=== PATIENT | male | born 1935 | race Caucasian/White ===

== ENCOUNTER 2018-10-23 18:22 | Inpatient (IN) | payer MEDICARE | END 2018-10-26 12:30 | LOC: ER 18:22 → ED HOLD 20:36 → ORTHO 4S 22:37 | DX: I12.9 Hypertensive chronic kidney disease with stage 1 through stage 4 chronic kidney disease, or unspecified chronic kidney disease (principal); G45.9 Transient cerebral ischemic attack, unspecified; N39.0 Urinary tract infection, site not specified; N17.9 Acute kidney failure, unspecified; F03.90 Unspecified dementia, unspecified severity, without behavioral disturbance, psychotic disturbance, mood disturbance, and anxiety; I65.02 Occlusion and stenosis of left vertebral artery; N18.9 Chronic kidney disease, unspecified ==

== ENCOUNTER 2018-11-17 16:48 | Inpatient (IN) | payer MEDICARE ==
[~2018-11-17] VITALS: Ht 172.7 cm; Wt 61.2 kg
[~2018-11-17 16:48] MED LIST: AMLO2.5T2 PO; ASPI-1265 PO; ATOR20TA PO; GABA-532 PO; HYDR28CR14 TOP; ISOS30TA9 PO; KEN0.1O TP; LISI-600 PO; METO100T7 PO; MYCOL15CR TOP
[2018-11-17 17:45] LABS: BASOPHILS % (AUTO) 0.6 % (0-1); EOSINOPHILS # (AUTO) 0.4 X10'3 (0-0.9); EOSINOPHILS % (AUTO) 6.7 % (0-6); HEMATOCRIT 38.3 % (42.0-52.0); HEMOGLOBIN 12.3 g/dl (14.0-17.9); LYMPHOCYTES % (AUTO) 15.2 % (21-51); MEAN CORPUSCULAR HEMOGLOBIN 27.9 PG (27.0-31.0); MEAN CORPUSCULAR VOLUME 87.3 FL (78-98); MEAN PLATELET VOLUME 8.2 FL (7.4-10.4); MONOCYTES # (AUTO) 0.5 X10'3 (0-0.9); MONOCYTES % (AUTO) 7.9 % (2-12); NEUTROPHILS # (AUTO) 4.6 X10'3 (1.8-7.7); NEUTROPHILS % (AUTO) 69.6 % (42-75); PLATELET COUNT 228 X10'3 (140-440); RED BLOOD COUNT 4.39 X10'6 (4.70-6.10); RED CELL DISTRIBUTION WIDTH 18.6 % (11.5-14.5); WHITE BLOOD COUNT 6.6 X10'3 (4.5-11.0)
[2018-11-17 17:49] LABS: CLARITY,URINE CLOUDY (Clear); COLOR,URINE YELLOW (Yellow); GLUCOSE, URINE NEGATIVE (Neg); KETONES,URINE NEGATIVE (Neg); LEUKOCYTE ESTERASE ,URINE LARGE (Neg); NITRITES, URINE POSITIVE (Neg); OCCULT BLOOD,URINE MODERATE (Neg); PH,URINE 5.5 (4.8-8.0); PROTEIN,URINE 100 mg/dl (Neg); UROBILINOGEN,URINE 0.2 E.U/dL (0.2-1.0)
[2018-11-17 17:53] LABS: UA COLLECTION TYPE CLN CATCH MIDSTREAM
[2018-11-17 17:54] LABS: BACTERIA,URINE 3+ /HPF (Neg); MUCUS STRANDS NONE SEEN /LPF (Neg); SQUAMOUS EPITHELIAL CELL,UR NONE SEEN /LPF (FEW); TRANSITIONAL EPI CELLS,URINE FEW /HPF; WBC,URINE TNTC /HPF (0-4)
[2018-11-17 18:01] LABS: ALANINE AMINOTRANSFERASE 30 U/L (12-78); ALBUMIN 3.4 G/DL (3.4-5.0); ALKALINE PHOSPHATASE 157 IU/L (46-116); ANION GAP 9 (8-16); ASPARTATE AMINO TRANSFERASE 17 U/L (10-37); BILIRUBIN,TOTAL 0.4 MG/DL (0.1-1.0); BLOOD UREA NITROGEN 41 MG/DL (7-18); BUN/CREATININE RATIO 19.9 (5.4-32.0); CALCIUM 8.8 MG/DL (8.5-10.1); CHLORIDE 111 MMOL/L (99-107); CREATININE 2.06 MG/DL (0.60-1.10); GLUCOSE 140 MG/DL (70-104); SODIUM 141 MMOL/L (135-145); TOTAL CARBON DIOXIDE 20.8 MMOL/L (24-32); TOTAL PROTEIN 6.7 G/DL (6.4-8.2); eGFR 31 ML/MIN
[2018-11-17 18:04] LABS: POTASSIUM 6.3 MMOL/L (3.5-5.1)
[2018-11-17] MEDS ORDERED: insulin regular, human 10 units/0.1 ml syringe IV ONE (18:10)
[2018-11-17] MEDS ORDERED: calcium chloride 100 MG/1 ML inj IV ONE (18:10)
[2018-11-17] MEDS ORDERED: dextrose 50%-water 50ml dispensing syringe IV ONE (18:10)
--- NOTE | 2018-11-17 18:26 | NUR ---
DR. MCCANN CALLED AND SAID NOC HOSPITALIST WOULD HAVE TO TAKE OVER ON THIS CALL
[2018-11-17] MEDS ORDERED: GABA-532 PO (18:45)
[2018-11-17] MEDS ORDERED: ISOS30TA9 PO (18:48)
[2018-11-17] MEDS ORDERED: AMLO2.5T2 PO ×2 (18:51→18:53)
[2018-11-17] MEDS ORDERED: KEN0.1O TP (18:56)
[2018-11-17] MEDS ORDERED: METO-395 PO (18:56)
[2018-11-17] MEDS ORDERED: DIPH50CA3 PO (19:01)
[2018-11-17] MEDS ORDERED: LORA10CA PO (19:01)
[2018-11-17] MEDS ORDERED: MELA3TAB PO (19:01)
[2018-11-17] MEDS ORDERED: SYN0.088T PO (19:01)
[2018-11-17] MEDS ORDERED: acetaminophen 325mg tablet PO PRN (19:05)
[2018-11-17] MEDS ORDERED: magnesium hydroxide 30ml (MOM) UD suspension PO PRN (19:05)
[2018-11-17] MEDS ORDERED: ondansetron/PF 4mg/2ml inj IV PRN (19:05)
[2018-11-17] MEDS ORDERED: morphine 2 MG/ML inj. syringe IV PRN ×2 (19:05)
[2018-11-17] MEDS ORDERED: mag hydrox/Alum hydrox/simeth 30ml oral suspension PO PRN (19:05)
[2018-11-17] MEDS: normal saline 1000ml 1,000 ML IV SCH (19:32)
[2018-11-17] MEDS: meropenem inj 1 GM in normal saline 100ml IV soln 100 ML IV SCH (19:32)
[2018-11-17] MEDS: heparin, porcine 5000 units/ml vial SQ SCH (20:25)
[2018-11-17 21:30] VITALS: BP 159/81
[2018-11-18] VITALS: BP 121/59
[2018-11-18] MEDS: meropenem inj 1 GM in normal saline 100ml IV soln 100 ML IV SCH ×3 (03:09→21:08)
[2018-11-18 04:08] LABS: BASOPHILS # (AUTO) 0.1 X10'3 (0-0.2); BASOPHILS % (AUTO) 0.8 % (0-1); EOSINOPHILS # (AUTO) 0.5 X10'3 (0-0.9); EOSINOPHILS % (AUTO) 7.9 % (0-6); HEMATOCRIT 37.9 % (42.0-52.0); HEMOGLOBIN 12.2 g/dl (14.0-17.9); LYMPHOCYTES # (AUTO) 1.2 X10'3 (1.1-4.8); LYMPHOCYTES % (AUTO) 18.3 % (21-51); MEAN CORPUSCULAR HEMOGLOBIN 27.7 PG (27.0-31.0); MEAN CORPUSCULAR HGB CONC 32.3 g/dL (33.0-36.5); MEAN CORPUSCULAR VOLUME 85.9 FL (78-98); MEAN PLATELET VOLUME 8.6 FL (7.4-10.4); MONOCYTES # (AUTO) 0.6 X10'3 (0-0.9); NEUTROPHILS # (AUTO) 4.2 X10'3 (1.8-7.7); PLATELET COUNT 220 X10'3 (140-440); RED BLOOD COUNT 4.41 X10'6 (4.70-6.10); WHITE BLOOD COUNT 6.6 X10'3 (4.5-11.0)
[2018-11-18 04:19] LABS: ALBUMIN 3.1 G/DL (3.4-5.0); ANION GAP 7 (8-16); BLOOD UREA NITROGEN 37 MG/DL (7-18); BUN/CREATININE RATIO 20.7 (5.4-32.0); CALCIUM 9.2 MG/DL (8.5-10.1); CHLORIDE 113 MMOL/L (99-107); CREATININE 1.79 MG/DL (0.60-1.10); GLUCOSE 92 MG/DL (70-104); POTASSIUM 5.9 MMOL/L (3.5-5.1); SODIUM 141 MMOL/L (135-145); TOTAL CARBON DIOXIDE 20.9 MMOL/L (24-32); eGFR 36 ML/MIN
[2018-11-18] MEDS: normal saline 1000ml 1,000 ML IV SCH (05:11)
[2018-11-18 05:13] LABS: ANISOCYTOSIS 2+; BURR CELLS FEW; ELLIPTOCYTES FEW; PLATELET ESTIMATE NORMAL
--- NOTE | 2018-11-18 06:21 | NUR ---
Problems reprioritized. Patient report given, questions answered & plan of care reviewed with Sweta MORAN. Addendum: 11/18/18 at 0621 by Kristen Amezcua RN Amended: Links added.
[2018-11-18 07:00] VITALS: BP 156/83
[2018-11-18] MEDS: aspirin 81mg tab.chew PO SCH (07:28)
[2018-11-18] MEDS: loratadine 10mg tablet PO SCH (07:28)
[2018-11-18] MEDS: triamcinolone acet 0.1% cream 15gm TP SCH ×2 (07:29→20:00)
[2018-11-18] MEDS: heparin, porcine 5000 units/ml vial SQ SCH ×2 (07:29→20:00)
[2018-11-18] MEDS: levoTHYROXINE 25mcg tablet PO SCH (07:29)
[2018-11-18] MEDS: isosorbide dinitrate 30mg tablet PO SCH (07:43)
[2018-11-18] MEDS: metoprolol succinate 25mg (24-HOUR) SR. Tablet PO SCH (07:43)
[2018-11-18] MEDS: amLODIPine 5mg tablet PO SCH (07:44)
[2018-11-18 11:00] VITALS: BP_SYST 116; BP_SYST 118; BP_DIAS 69; BP_DIAS 70
[2018-11-18] MEDS ORDERED: insulin Lispro (HumaLOG) vial - multi-dose SQ SCH (17:25)
[2018-11-18] MEDS ORDERED: dextrose ORAL solution 15 GM/59 ML bottle PO PRN ×2 (17:25)
[2018-11-18] MEDS ORDERED: glucagon, human recombinant 1mg kit SUBCUT PRN (17:25)
[2018-11-18] MEDS ORDERED: dextrose 50%-water 50ml dispensing syringe IV PRN ×2 (17:25)
[2018-11-18] MEDS ORDERED: MESSAGE TO PHARMACY PO ONE (17:25)
--- NOTE | 2018-11-18 18:49 | NUR ---
Patient in room THONG 353. I have received report from HEIKE MORAN and had the opportunity to ask questions and assume patient care. Addendum: 11/18/18 at 1849 by Ana Lilia Andrew RN Amended: Links added.
--- NOTE | 2018-11-18 19:05 | NUR ---
PT. IN BED, COMFORTABLE, SITTING UP IN BED, RECENT BED CHANGE, PT IS DRY, IV SL, BED ALARM IS ON AND WORKING. GAVE REPORT TO RASHAAD MORAN.
[2018-11-18 20:00] VITALS: BP 138/78
[2018-11-18] MEDS: insulin glargine (Lantus) pen - multi-dose SQ SCH (21:00)
[2018-11-18] MEDS: diphenhydrAMINE 25mg capsule PO SCH (21:09)
[2018-11-18] MEDS: atorvastatin 20mg tablet PO SCH (21:09)
[2018-11-18] MEDS: Melatonin 3mg tablet PO SCH (21:10)
--- NOTE | 2018-11-18 21:22 | NUR ---
computer not always scanning had to admin some meds due to this. not working well.
--- NOTE | 2018-11-18 23:50 | NUR ---
pt bladder scan after c/o burning with pee. pt peed 50cc and scanned for 465 left in the bladder hx of urinary retention.
[2018-11-19] VITALS: BP 147/80
--- NOTE | 2018-11-19 | NUR ---
call out to hospitalist regarding pt urinary retention.
--- NOTE | 2018-11-19 01:00 | NUR ---
recieved return call an aware pt hx urinary retention uti c/o burning on abx and pt confused with dementia. orders to continue to monitor recieved.
--- NOTE | 2018-11-19 01:20 | NUR ---
pt peed 250cc urine and bladder scanned for 712cc in the bladder pt continues to c/o discomfort. stated if over 550cc insert a luong on pt.
--- NOTE | 2018-11-19 01:55 | NUR ---
luong inserted via sterile procedure. had bladder scan of 712cc in there after luong inserted got 500cc out. cl yellow urine. pt stated very painful but ok with the luong now.
[2018-11-19] MEDS: meropenem inj 1 GM in normal saline 100ml IV soln 100 ML IV SCH ×2 (03:46→12:28)
--- NOTE | 2018-11-19 03:57 | NUR ---
pt awoke for lab drawn
[2018-11-19 04:33] LABS: BASOPHILS # (AUTO) 0.1 X10'3 (0-0.2); BASOPHILS % (AUTO) 0.7 % (0-1); EOSINOPHILS # (AUTO) 0.5 X10'3 (0-0.9); EOSINOPHILS % (AUTO) 7.4 % (0-6); HEMATOCRIT 39.3 % (42.0-52.0); HEMOGLOBIN 12.6 g/dl (14.0-17.9); LYMPHOCYTES % (AUTO) 13.9 % (21-51); MEAN CORPUSCULAR HEMOGLOBIN 27.8 PG (27.0-31.0); MEAN CORPUSCULAR HGB CONC 32.1 g/dL (33.0-36.5); MEAN CORPUSCULAR VOLUME 86.4 FL (78-98); MEAN PLATELET VOLUME 8.5 FL (7.4-10.4); MONOCYTES # (AUTO) 0.5 X10'3 (0-0.9); MONOCYTES % (AUTO) 6.7 % (2-12); NEUTROPHILS % (AUTO) 71.3 % (42-75); PLATELET COUNT 212 X10'3 (140-440); RED BLOOD COUNT 4.55 X10'6 (4.70-6.10); RED CELL DISTRIBUTION WIDTH 18.4 % (11.5-14.5); WHITE BLOOD COUNT 7.1 X10'3 (4.5-11.0)
[2018-11-19 04:53] LABS: ALBUMIN 3.2 G/DL (3.4-5.0); ANION GAP 8 (8-16); BLOOD UREA NITROGEN 27 MG/DL (7-18); BUN/CREATININE RATIO 16.7 (5.4-32.0); CALCIUM 9.2 MG/DL (8.5-10.1); CHLORIDE 111 MMOL/L (99-107); CREATININE 1.62 MG/DL (0.60-1.10); GLUCOSE 89 MG/DL (70-104); POTASSIUM 5.6 MMOL/L (3.5-5.1); SODIUM 140 MMOL/L (135-145); TOTAL CARBON DIOXIDE 20.7 MMOL/L (24-32); eGFR 41 ML/MIN
--- NOTE | 2018-11-19 05:07 | NUR ---
resting without changes.
--- NOTE | 2018-11-19 06:19 | NUR ---
Problems reprioritized. Patient report given, questions answered & plan of care reviewed with HEIKE MORAN. Addendum: 11/19/18 at 0620 by Ana Lilia Andrew RN Amended: Links added.
[2018-11-19 07:00] VITALS: BP 158/70
[2018-11-19] MEDS: metoprolol succinate 25mg (24-HOUR) SR. Tablet PO SCH (08:26)
[2018-11-19] MEDS: loratadine 10mg tablet PO SCH (08:26)
[2018-11-19] MEDS: aspirin 81mg tab.chew PO SCH (08:26)
[2018-11-19] MEDS: isosorbide dinitrate 30mg tablet PO SCH (08:26)
[2018-11-19] MEDS: levoTHYROXINE 25mcg tablet PO SCH (08:27)
[2018-11-19] MEDS: amLODIPine 5mg tablet PO SCH (08:27)
[2018-11-19] MEDS: heparin, porcine 5000 units/ml vial SQ SCH ×2 (08:28→19:58)
[2018-11-19] MEDS: triamcinolone acet 0.1% cream 15gm TP SCH ×2 (08:28→19:58)
[2018-11-19] MEDS: HYDROcodone/acetaminophen 5mg/325mg tablet PO PRN ×2 (08:28→15:31)
[2018-11-19 12:00] VITALS: BP 122/72
--- NOTE | 2018-11-19 16:19 | NUR ---
PAGER ID: [phone] MESSAGE: can you please call me about pt. in [id number]ail[address] Sol [phone]
--- NOTE | 2018-11-19 17:32 | NUR ---
Pt. repositioned, moved into W/C to be in upright position for dinner. Last pain medication given at 1530, no c/o pain at this time although some verbal groaning during repositioning. Fall precautions in place.
--- NOTE | 2018-11-19 18:11 | NUR ---
Gave report to Ana Lilia MORAN.
--- NOTE | 2018-11-19 18:30 | NUR ---
Patient in room THONG 353. I have received report from HEIKE MORAN and had the opportunity to ask questions and assume patient care.
--- NOTE | 2018-11-19 19:00 | NUR ---
pt up in chair for dinner then assisted back to bed with 2 people. tolerated well.
[2018-11-19 19:22] VITALS: BP 147/76
[2018-11-19] MEDS: diphenhydrAMINE 25mg capsule PO SCH (19:58)
[2018-11-19] MEDS: lactobacillus rhamnosus 10,000 MMU CELLS/CAPSULE PO SCH (19:58)
[2018-11-19] MEDS: atorvastatin 20mg tablet PO SCH (19:59)
[2018-11-19] MEDS: Melatonin 3mg tablet PO SCH (19:59)
[2018-11-19] MEDS: tamsulosin 0.4mg capsule PO SCH (19:59)
[2018-11-19] MEDS: insulin glargine (Lantus) pen - multi-dose SQ SCH (20:05)
--- NOTE | 2018-11-19 20:06 | NUR ---
computer not scanning meds. administered them in isolation room.
--- NOTE | 2018-11-19 22:00 | NUR ---
pt resting appears comfortable.
--- NOTE | 2018-11-19 23:15 | NUR ---
pt resting eyes closed without changes.
[2018-11-20] VITALS: BP 125/74
[2018-11-20] MEDS: meropenem inj 1 GM in normal saline 100ml IV soln 100 ML IV SCH ×2 (00:19→12:55)
--- NOTE | 2018-11-20 00:45 | NUR ---
resting eyes closed no changes iv abx infusing
--- NOTE | 2018-11-20 02:45 | NUR ---
RESTING WITHOUT CHANGES.
--- NOTE | 2018-11-20 04:34 | NUR ---
resting without changes.
--- NOTE | 2018-11-20 04:48 | NUR ---
labs drawn with Rn and dental laboratory assistant tolerated well.
[2018-11-20 05:27] LABS: BASOPHILS % (AUTO) 0.7 % (0-1); EOSINOPHILS # (AUTO) 0.4 X10'3 (0-0.9); EOSINOPHILS % (AUTO) 7.2 % (0-6); HEMATOCRIT 38.2 % (42.0-52.0); HEMOGLOBIN 12.5 g/dl (14.0-17.9); LYMPHOCYTES # (AUTO) 0.8 X10'3 (1.1-4.8); LYMPHOCYTES % (AUTO) 14.1 % (21-51); MEAN CORPUSCULAR HEMOGLOBIN 28.1 PG (27.0-31.0); MEAN CORPUSCULAR HGB CONC 32.8 g/dL (33.0-36.5); MEAN CORPUSCULAR VOLUME 85.7 FL (78-98); MEAN PLATELET VOLUME 8.4 FL (7.4-10.4); MONOCYTES # (AUTO) 0.5 X10'3 (0-0.9); MONOCYTES % (AUTO) 8.9 % (2-12); NEUTROPHILS % (AUTO) 69.1 % (42-75); PLATELET COUNT 202 X10'3 (140-440); RED BLOOD COUNT 4.46 X10'6 (4.70-6.10); RED CELL DISTRIBUTION WIDTH 18.2 % (11.5-14.5); WHITE BLOOD COUNT 5.8 X10'3 (4.5-11.0)
--- NOTE | 2018-11-20 05:49 | NUR ---
resting no changes
[2018-11-20 05:56] LABS: ALBUMIN 3.1 G/DL (3.4-5.0); ANION GAP 13 (8-16); BLOOD UREA NITROGEN 24 MG/DL (7-18); BUN/CREATININE RATIO 14.7 (5.4-32.0); CHLORIDE 108 MMOL/L (99-107); CREATININE 1.63 MG/DL (0.60-1.10); GLUCOSE 77 MG/DL (70-104); POTASSIUM 5.4 MMOL/L (3.5-5.1); SODIUM 139 MMOL/L (135-145); TOTAL CARBON DIOXIDE 17.6 MMOL/L (24-32); eGFR 40 ML/MIN
--- NOTE | 2018-11-20 06:28 | NUR ---
Problems reprioritized. Patient report given, questions answered & plan of care reviewed with VIVIAN MORAN. Addendum: 11/20/18 at 0629 by Ana Lilia Andrew RN Amended: Links added.
--- NOTE | 2018-11-20 06:30 | NUR ---
Patient in room THONG 353. I have received report from Ana Lilia MORAN and had the opportunity to ask questions and assume patient care.
[2018-11-20 08:00] VITALS: BP 173/87
[2018-11-20] MEDS: aspirin 81mg tab.chew PO SCH (10:45)
[2018-11-20] MEDS: metoprolol succinate 25mg (24-HOUR) SR. Tablet PO SCH (10:45)
[2018-11-20] MEDS: loratadine 10mg tablet PO SCH (10:46)
[2018-11-20] MEDS: lactobacillus rhamnosus 10,000 MMU CELLS/CAPSULE PO SCH ×2 (10:46→21:01)
[2018-11-20] MEDS: levoTHYROXINE 25mcg tablet PO SCH (10:47)
[2018-11-20] MEDS: amLODIPine 5mg tablet PO SCH (10:47)
[2018-11-20] MEDS: isosorbide dinitrate 30mg tablet PO SCH (10:47)
[2018-11-20] MEDS: heparin, porcine 5000 units/ml vial SQ SCH ×2 (10:49→20:00)
[2018-11-20] MEDS: triamcinolone acet 0.1% cream 15gm TP SCH ×2 (10:50→20:00)
[2018-11-20 11:00] VITALS: BP 131/82
--- NOTE | 2018-11-20 18:29 | NUR ---
Patient in room THONG 353. I have received report from Thanh Trujillo and had the opportunity to ask questions and assume patient care. Addendum: 11/20/18 at 1829 by Ana Lilia Andrew RN Amended: Links added.
--- NOTE | 2018-11-20 18:30 | NUR ---
Problems reprioritized. Patient report given, questions answered & plan of care reviewed with Ana Lilia MORAN.
--- NOTE | 2018-11-20 18:57 | NUR ---
Patient in room [facility]ONG 353. I have received report from VIVIAN MORAN and had the opportunity to ask questions and assume patient care. Addendum: 11/20/18 at 1857 by Ana Lilia Andrew RN Amended: Links added.
[2018-11-20 19:54] VITALS: BP 139/64
[2018-11-20] MEDS: tamsulosin 0.4mg capsule PO SCH (20:59)
[2018-11-20] MEDS: atorvastatin 20mg tablet PO SCH (20:59)
[2018-11-20] MEDS: Melatonin 3mg tablet PO SCH (20:59)
[2018-11-20] MEDS: insulin glargine (Lantus) pen - multi-dose SQ SCH (21:00)
[2018-11-20] MEDS: diphenhydrAMINE 25mg capsule PO SCH (21:01)
--- NOTE | 2018-11-20 23:40 | NUR ---
pt restless ound sitting on edge of bed and ARCH CUSHION SKIVING MACHINE OPERATOR got him up in recling chair and gave him decaf coffe. pt no ok with this.
[2018-11-21] VITALS: BP 121/70
[2018-11-21] MEDS: meropenem inj 1 GM in normal saline 100ml IV soln 100 ML IV SCH ×2 (00:10→13:05)
--- NOTE | 2018-11-21 00:16 | NUR ---
up in recling chair watching tv no s&s of distress. denies c/o pain at this time.
--- NOTE | 2018-11-21 02:05 | NUR ---
pt now back in bed and resting no s&s of distress at this time. tolerated well.
--- NOTE | 2018-11-21 04:05 | NUR ---
pt resting eyes closed without changes.
[2018-11-21 04:49] LABS: BASOPHILS % (AUTO) 0.8 % (0-1); EOSINOPHILS # (AUTO) 0.3 X10'3 (0-0.9); EOSINOPHILS % (AUTO) 6.3 % (0-6); HEMATOCRIT 38.5 % (42.0-52.0); HEMOGLOBIN 12.6 g/dl (14.0-17.9); LYMPHOCYTES # (AUTO) 0.9 X10'3 (1.1-4.8); LYMPHOCYTES % (AUTO) 18.6 % (21-51); MEAN CORPUSCULAR HEMOGLOBIN 27.9 PG (27.0-31.0); MEAN CORPUSCULAR HGB CONC 32.8 g/dL (33.0-36.5); MEAN CORPUSCULAR VOLUME 85.3 FL (78-98); MEAN PLATELET VOLUME 8.1 FL (7.4-10.4); MONOCYTES # (AUTO) 0.5 X10'3 (0-0.9); MONOCYTES % (AUTO) 10.7 % (2-12); NEUTROPHILS # (AUTO) 3.2 X10'3 (1.8-7.7); NEUTROPHILS % (AUTO) 63.6 % (42-75); PLATELET COUNT 198 X10'3 (140-440); RED BLOOD COUNT 4.52 X10'6 (4.70-6.10); RED CELL DISTRIBUTION WIDTH 18.3 % (11.5-14.5); WHITE BLOOD COUNT 5.1 X10'3 (4.5-11.0)
[2018-11-21 04:58] LABS: ALBUMIN 3.1 G/DL (3.4-5.0); ANION GAP 10 (8-16); BLOOD UREA NITROGEN 23 MG/DL (7-18); BUN/CREATININE RATIO 13.2 (5.4-32.0); CALCIUM 8.7 MG/DL (8.5-10.1); CHLORIDE 109 MMOL/L (99-107); CREATININE 1.74 MG/DL (0.60-1.10); GLUCOSE 80 MG/DL (70-104); POTASSIUM 5.2 MMOL/L (3.5-5.1); SODIUM 139 MMOL/L (135-145); TOTAL CARBON DIOXIDE 19.9 MMOL/L (24-32); eGFR 37 ML/MIN
[2018-11-21] MEDS: HYDROcodone/acetaminophen 5mg/325mg tablet PO PRN ×2 (05:12→22:34)
--- NOTE | 2018-11-21 05:15 | NUR ---
pt medicated for pain with norco po. repositioned in bed.
--- NOTE | 2018-11-21 06:10 | NUR ---
Problems reprioritized. Patient report given, questions answered & plan of care reviewed with VIVIAN MORAN. Addendum: 11/21/18 at 0612 by Ana Lilia Andrew RN Amended: Links added.
--- NOTE | 2018-11-21 06:30 | NUR ---
Patient in room THONG 353. I have received report from Ana Lilia MORAN and had the opportunity to ask questions and assume patient care.
[2018-11-21 08:13] VITALS: BP 149/70
[2018-11-21] MEDS: levoTHYROXINE 25mcg tablet PO SCH (08:49)
[2018-11-21] MEDS: aspirin 81mg tab.chew PO SCH (08:49)
[2018-11-21] MEDS: metoprolol succinate 25mg (24-HOUR) SR. Tablet PO SCH (08:49)
[2018-11-21] MEDS: loratadine 10mg tablet PO SCH (08:49)
[2018-11-21] MEDS: lactobacillus rhamnosus 10,000 MMU CELLS/CAPSULE PO SCH ×2 (08:49→20:42)
[2018-11-21] MEDS: amLODIPine 5mg tablet PO SCH (08:50)
[2018-11-21] MEDS: isosorbide dinitrate 30mg tablet PO SCH (08:50)
[2018-11-21] MEDS: triamcinolone acet 0.1% cream 15gm TP SCH ×2 (08:52→20:46)
[2018-11-21] MEDS: heparin, porcine 5000 units/ml vial SQ SCH ×2 (08:53→20:40)
[2018-11-21 11:00] VITALS: BP 128/73
--- NOTE | 2018-11-21 11:18 | NUR ---
Initial: Pt admit with UTI with luong cath placed and receiving Flomax per MD notes. Pt currently on a CHO controlled diet with most documented intake 100% meeting nutrient needs. LBM 11/19. Pt with MoM PRN not yet given however pt denies GI symptoms at this time per physical assessment. No nutrition diagnosis at this time. Will continue to follow. Recommendations: 1) Continue CHO controlled diet 2) Monitor need for additional bowel care 3) Wt per rx Addendum: 11/21/18 at [address] Amended: Links added.
[2018-11-21 18:00] VITALS: BP 155/79
--- NOTE | 2018-11-21 18:30 | NUR ---
Problems reprioritized. Patient report given, questions answered & plan of care reviewed with Hieu MORAN.
--- NOTE | 2018-11-21 18:31 | NUR ---
Patient in room [facility] 353. I have received report from LUISA Villalobos and had the opportunity to ask questions and assume patient care. Addendum: 11/21/18 at 2252 by Hieu Dyer RN Patient in room [facility]ONG 353. I have received report from LUISA Law and had the opportunity to ask questions and assume patient care.
[2018-11-21] MEDS: cefepime 1GM/NS ADD-VANTAGE 100 ML IV SCH (20:40)
[2018-11-21] MEDS: atorvastatin 20mg tablet PO SCH (20:42)
[2018-11-21] MEDS: linezolid 600mg tablet PO SCH (20:42)
[2018-11-21] MEDS: diphenhydrAMINE 25mg capsule PO SCH (20:42)
[2018-11-21] MEDS: Melatonin 3mg tablet PO SCH (20:42)
[2018-11-21] MEDS: tamsulosin 0.4mg capsule PO SCH (20:42)
[2018-11-21] MEDS: insulin glargine (Lantus) pen - multi-dose SQ SCH (21:00)
[2018-11-21] MEDS ORDERED: magnesium Cl slow-release 64mg tablet PO PRN (21:30)
[2018-11-21] MEDS ORDERED: potassium Cl 40MEQ/NS 500ml 500 ML IV PRN ×2 (21:30)
[2018-11-21] MEDS ORDERED: sodium bicarbonate (8.4%) inj. 100 MEQ in dextrose 5%-water 1,000 ML IV SCH (21:30)
[2018-11-21] MEDS ORDERED: potassium Cl 20 mEq SR tablet PO PRN ×2 (21:30)
[2018-11-21] MEDS ORDERED: magnesium 4gm in 100ml NS 100 ML IV PRN (21:30)
[2018-11-22] VITALS: BP 155/69
[2018-11-22 05:29] LABS: BASOPHILS % (AUTO) 0.4 % (0-1); EOSINOPHILS # (AUTO) 0.4 X10'3 (0-0.9); EOSINOPHILS % (AUTO) 7.3 % (0-6); HEMATOCRIT 37.2 % (42.0-52.0); HEMOGLOBIN 12.3 g/dl (14.0-17.9); MEAN CORPUSCULAR HEMOGLOBIN 28.2 PG (27.0-31.0); MEAN CORPUSCULAR HGB CONC 33.1 g/dL (33.0-36.5); MONOCYTES # (AUTO) 0.6 X10'3 (0-0.9); MONOCYTES % (AUTO) 11.8 % (2-12); NEUTROPHILS # (AUTO) 3.1 X10'3 (1.8-7.7); NEUTROPHILS % (AUTO) 61.5 % (42-75); PLATELET COUNT 190 X10'3 (140-440); RED BLOOD COUNT 4.38 X10'6 (4.70-6.10); RED CELL DISTRIBUTION WIDTH 17.9 % (11.5-14.5); WHITE BLOOD COUNT 5.1 X10'3 (4.5-11.0)
[2018-11-22 05:44] LABS: ALBUMIN 2.9 G/DL (3.4-5.0); ANION GAP 10 (8-16); BLOOD UREA NITROGEN 27 MG/DL (7-18); BUN/CREATININE RATIO 16.4 (5.4-32.0); CALCIUM 8.5 MG/DL (8.5-10.1); CHLORIDE 106 MMOL/L (99-107); CREATININE 1.65 MG/DL (0.60-1.10); GLUCOSE 101 MG/DL (70-104); MAGNESIUM 1.5 MG/DL (1.5-2.4); PHOSPHORUS 3.2 MG/DL (2.3-4.5); POTASSIUM 4.6 MMOL/L (3.5-5.1); SODIUM 137 MMOL/L (135-145); TOTAL CARBON DIOXIDE 21.5 MMOL/L (24-32); eGFR 40 ML/MIN
--- NOTE | 2018-11-22 06:29 | NUR ---
Problems reprioritized. Patient report given, questions answered & plan of care reviewed with LUISA Slater.
--- NOTE | 2018-11-22 06:29 | NUR ---
Patient in room [facility] 353. I have received report from Hieu MORAN and had the opportunity to ask questions and assume patient care.
[2018-11-22 07:21] VITALS: BP 154/90
[2018-11-22] MEDS: aspirin 81mg tab.chew PO SCH (07:59)
[2018-11-22] MEDS: loratadine 10mg tablet PO SCH (07:59)
[2018-11-22] MEDS: metoprolol succinate 25mg (24-HOUR) SR. Tablet PO SCH (07:59)
[2018-11-22] MEDS: lactobacillus rhamnosus 10,000 MMU CELLS/CAPSULE PO SCH ×2 (07:59→21:25)
[2018-11-22] MEDS: amLODIPine 5mg tablet PO SCH (07:59)
[2018-11-22] MEDS: levoTHYROXINE 25mcg tablet PO SCH (07:59)
[2018-11-22] MEDS: linezolid 600mg tablet PO SCH ×2 (07:59→21:25)
[2018-11-22] MEDS: triamcinolone acet 0.1% cream 15gm TP SCH ×2 (08:00→21:26)
[2018-11-22] MEDS: isosorbide dinitrate 30mg tablet PO SCH (08:00)
[2018-11-22] MEDS: heparin, porcine 5000 units/ml vial SQ SCH ×2 (08:00→21:25)
[2018-11-22] MEDS: cefepime 1GM/NS ADD-VANTAGE 100 ML IV SCH ×2 (08:00→21:24)
[2018-11-22] MEDS: dextrose 5%-normal saline 1,000 ML IV SCH (09:44)
[2018-11-22 11:25] VITALS: BP 116/68
[2018-11-22] MEDS: sodium bicarbonate 650mg tablet PO SCH ×2 (13:17→21:25)
[2018-11-22 14:00] VITALS: BP 140/71
--- NOTE | 2018-11-22 16:28 | NUR ---
amol education: Low tyramine education deferred, patient is documented as confused unable for written/verbal education. Addendum: 11/22/18 at [address] Amended: Links added.
[2018-11-22 18:00] VITALS: BP 145/74
--- NOTE | 2018-11-22 18:27 | NUR ---
Problems reprioritized. Patient report given, questions answered & plan of care reviewed with Hieu MORAN.
--- NOTE | 2018-11-22 18:28 | NUR ---
Patient in room [facility] 353. I have received report from Cassandra Slater and had the opportunity to ask questions and assume patient care.
[2018-11-22] MEDS: insulin glargine (Lantus) pen - multi-dose SQ SCH (21:00)
[2018-11-22] MEDS: atorvastatin 20mg tablet PO SCH (21:25)
[2018-11-22] MEDS: diphenhydrAMINE 25mg capsule PO SCH (21:25)
[2018-11-22] MEDS: tamsulosin 0.4mg capsule PO SCH (21:25)
[2018-11-22] MEDS: Melatonin 3mg tablet PO SCH (21:25)
[2018-11-22] MEDS: HYDROcodone/acetaminophen 5mg/325mg tablet PO PRN (21:55)
[2018-11-23] VITALS: BP 140/76
[2018-11-23] MEDS: dextrose 5%-normal saline 1,000 ML IV SCH ×2 (04:14→21:49)
[2018-11-23 05:49] LABS: MAGNESIUM 1.6 MG/DL (1.5-2.4); PHOSPHORUS 3.3 MG/DL (2.3-4.5)
--- NOTE | 2018-11-23 06:48 | NUR ---
Problems reprioritized. Patient report given, questions answered & plan of care reviewed with LUISA Perry. Addendum: 11/23/18 at 0649 by Hieu Dyer RN Problems reprioritized. Patient report given, questions answered & plan of care reviewed with LUISA Sol.
--- NOTE | 2018-11-23 07:15 | NUR ---
PAGER ID: [phone] MESSAGE: [phone] Kaila Lamb Pt. cannot go home to [facility] with FC in place. Inserted for retention and Flomax started. May we have FC DC order and PRN straight cath. order please? Thank you- Sweta MORAN [phone]
[2018-11-23 08:00] VITALS: BP 142/77
--- NOTE | 2018-11-23 08:46 | NUR ---
PAGER ID: [phone] MESSAGE: [phone] Kaila Lamb Is luong catheter permanent? Pt. cannot discharge to current place of living with FC. May we please have orders to DC and straight cath. PRN if > 400? Sweta MORAN [phone] page return by phone call. gave new orders- see orders.
[2018-11-23] MEDS: cefepime 1GM/NS ADD-VANTAGE 100 ML IV SCH ×2 (09:23→20:35)
[2018-11-23] MEDS: metoprolol succinate 25mg (24-HOUR) SR. Tablet PO SCH (09:23)
[2018-11-23] MEDS: amLODIPine 5mg tablet PO SCH (09:24)
[2018-11-23] MEDS: sodium bicarbonate 650mg tablet PO SCH ×3 (09:24→20:36)
[2018-11-23] MEDS: aspirin 81mg tab.chew PO SCH (09:24)
[2018-11-23] MEDS: lactobacillus rhamnosus 10,000 MMU CELLS/CAPSULE PO SCH ×2 (09:24→20:35)
[2018-11-23] MEDS: loratadine 10mg tablet PO SCH (09:25)
[2018-11-23] MEDS: heparin, porcine 5000 units/ml vial SQ SCH ×2 (09:25→20:35)
[2018-11-23] MEDS: linezolid 600mg tablet PO SCH ×2 (09:25→20:35)
[2018-11-23] MEDS: levoTHYROXINE 25mcg tablet PO SCH (09:25)
[2018-11-23] MEDS: triamcinolone acet 0.1% cream 15gm TP SCH ×2 (09:26→21:50)
[2018-11-23] MEDS: HYDROcodone/acetaminophen 5mg/325mg tablet PO PRN ×2 (09:27→13:39)
[2018-11-23] MEDS: isosorbide dinitrate 30mg tablet PO SCH (09:27)
[2018-11-23] MEDS ORDERED: LINE600T32 PO (11:39)
[2018-11-23] MEDS ORDERED: tamsulosin capsule PO (11:39)
[2018-11-23] MEDS ORDERED: LACT1CAP26 PO (11:39)
[2018-11-23] MEDS ORDERED: SODI650T29 PO (11:39)
[2018-11-23 12:00] VITALS: BP 92/58
--- NOTE | 2018-11-23 12:57 | NUR ---
WAITING TO DISCHARGE PT. UNTIL HE VOIDS. BLADDER SCANNED HIM AT 1200. 29ML IN BLADDER. PT. HAS NO URGE TO VOID AT THIS TIME. PLAN TO AMBULATE WITH HIM AND BLADDER SCAN HIM AGAIN AT 1400.
--- NOTE | 2018-11-23 13:40 | NUR ---
Pt. still has not been able to void, 116 in bladder when scanned.
--- NOTE | 2018-11-23 15:21 | NUR ---
PAGER ID: [phone] MESSAGE: [phone] RADHAAnthony RAWLS 273 IN PT. BLADDER. PLEASE CALL ME REGAURDING THIS PT. DISCHARGE. THANK YOU HEIKE [phone]
--- NOTE | 2018-11-23 18:00 | NUR ---
Patient is not going to discharge tonight due to no ride after 1600 available from facility and patient has not voided at this time after luong has been dc'd. Facility has nobody to straight cath prn on night custodian. Per Dr Emile abreu to discharge patient in am before he sees patient as long as patient is voiding
--- NOTE | 2018-11-23 19:03 | NUR ---
Pt. has 362 in bladder when scanned. Sitting up in chair for dinner. Gave report to Kika MORAN.
--- NOTE | 2018-11-23 19:04 | NUR ---
Patient in room THONG 353. I have received report from HEIKE MORAN and had the opportunity to ask questions and assume patient care.
[2018-11-23 20:00] VITALS: BP 157/91
[2018-11-23] MEDS: tamsulosin 0.4mg capsule PO SCH (20:36)
[2018-11-23] MEDS: Melatonin 3mg tablet PO SCH (20:36)
[2018-11-23] MEDS: atorvastatin 20mg tablet PO SCH (20:36)
[2018-11-23] MEDS: diphenhydrAMINE 25mg capsule PO SCH (20:36)
[2018-11-23] MEDS: insulin glargine (Lantus) pen - multi-dose SQ SCH (21:00)
[2018-11-24] VITALS: BP 163/94
[2018-11-24 05:56] LABS: MAGNESIUM 1.6 MG/DL (1.5-2.4); PHOSPHORUS 3.3 MG/DL (2.3-4.5)
[2018-11-24 07:41] VITALS: BP 155/78
[2018-11-24] MEDS: amLODIPine 5mg tablet PO SCH (07:48)
[2018-11-24] MEDS: sodium bicarbonate 650mg tablet PO SCH ×2 (07:48→12:31)
[2018-11-24] MEDS: levoTHYROXINE 25mcg tablet PO SCH (07:48)
[2018-11-24] MEDS: loratadine 10mg tablet PO SCH (07:48)
[2018-11-24] MEDS: metoprolol succinate 25mg (24-HOUR) SR. Tablet PO SCH (07:48)
[2018-11-24] MEDS: isosorbide dinitrate 30mg tablet PO SCH (07:48)
[2018-11-24] MEDS: aspirin 81mg tab.chew PO SCH (07:48)
[2018-11-24] MEDS: lactobacillus rhamnosus 10,000 MMU CELLS/CAPSULE PO SCH (07:48)
[2018-11-24] MEDS: cefepime 1GM/NS ADD-VANTAGE 100 ML IV SCH (07:49)
[2018-11-24] MEDS: heparin, porcine 5000 units/ml vial SQ SCH (07:49)
[2018-11-24] MEDS: linezolid 600mg tablet PO SCH (07:50)
[2018-11-24] MEDS: triamcinolone acet 0.1% cream 15gm TP SCH (08:01)
[2018-11-24 11:36] VITALS: BP 139/70
--- NOTE | 2018-11-24 11:43 | NUR ---
patient has dc orders in. egg caser, catherine, is setting up patient transfer back to [facility]. awaiting pick up worker time.
--- NOTE | 2018-11-24 11:50 | NUR ---
patient mixing picker tender time for transfer back to [facility] is 1430.
--- NOTE | 2018-11-24 12:39 | NUR ---
Discussed with patient discharge instructions. Patient confused and forgetful at times hx of dementia but during education patient stated, "okay, okay" to verbalize understanding. Patient ready for dc and awaiting transportation. Transport time per CM was 1430. Patient notified.
--- NOTE | 2018-11-24 15:11 | NUR ---
patient dc'd with all personal belongings via wheelchair accompanied by [facility] staff. patient alert and confused and forgetful but not in any apparent distress.
== END 2018-11-24 15:00 | disposition home health service (06) | DRG 689 ==
LOC: ER 16:48 → SUR 3N 21:25 → CMPBEDREQ 21:34 → SUR 3N 11-18 13:30
PROVIDERS: ADMIT Internal Medicine; ATTEND Family Medicine
DX: N39.0 Urinary tract infection, site not specified (principal); G93.41 Metabolic encephalopathy; N17.9 Acute kidney failure, unspecified; E87.2 Acidosis; I12.9 Hypertensive chronic kidney disease with stage 1 through stage 4 chronic kidney disease, or unspecified chronic kidney disease; N18.9 Chronic kidney disease, unspecified; E87.5 Hyperkalemia; R33.9 Retention of urine, unspecified; B95.2 Enterococcus as the cause of diseases classified elsewhere; B96.5 Pseudomonas (aeruginosa) (mallei) (pseudomallei) as the cause of diseases classified elsewhere; E03.9 Hypothyroidism, unspecified; E11.22 Type 2 diabetes mellitus with diabetic chronic kidney disease; E78.00 Pure hypercholesterolemia, unspecified; E78.5 Hyperlipidemia, unspecified; F03.90 Unspecified dementia, unspecified severity, without behavioral disturbance, psychotic disturbance, mood disturbance, and anxiety; E11.42 Type 2 diabetes mellitus with diabetic polyneuropathy; Z60.2 Problems related to living alone; Z66 Do not resuscitate; Z88.8 Allergy status to other drugs, medicaments and biological substances; Z79.899 Other long term (current) drug therapy; Z79.82 Long term (current) use of aspirin; Z86.73 Personal history of transient ischemic attack (TIA), and cerebral infarction without residual deficits
CPT/HCPCS: 36415; 71045; 80048; 80053; 81001; 82948; 83036; 83735; 84100; 84132; 85025; 87070; 87077; 87088; 87186; 93005; 96361; 96372; 96374; 96375; 97116; 97161; 99285; G0378; J0692; J1644; J1815; J2185; J7030; J7042; Q0163

== ENCOUNTER 2019-05-04 13:56 | Emergency (ER) | payer MEDICARE ==
[~2019-05-04] VITALS: Ht 172.7 cm; Wt 86.4 kg
[~2019-05-04 13:56] MED LIST changes: +DIPH50CA3 PO; -HYDR28CR14 TOP; +LACT1CAP26 PO; +LINE600T14 PO; -LISI-600 PO; +LORA10CA PO; +MELA3TAB64 PO; +METO-395 PO; -METO100T7 PO; -MYCOL15CR TOP; +SODI650T29 PO; +SYN0.088T PO; +tamsulosin capsule PO
[2019-05-04 15:40] LABS: ALBUMIN 3.2 G/DL (3.4-5.0); ANION GAP 9 (8-16); BLOOD UREA NITROGEN 46 MG/DL (7-18); CALCIUM 8.6 MG/DL (8.5-10.1); CHLORIDE 108 MMOL/L (99-107); CREATININE 2.55 MG/DL (0.60-1.10); GLUCOSE 165 MG/DL (70-104); POTASSIUM 4.6 MMOL/L (3.5-5.1); SODIUM 143 MMOL/L (135-145); TOTAL CARBON DIOXIDE 26.1 MMOL/L (24-32); eGFR 24 ML/MIN
[2019-05-04 15:41] LABS: CLARITY,URINE CLOUDY (Clear); COLOR,URINE YELLOW (Yellow); GLUCOSE, URINE NEGATIVE (Neg); KETONES,URINE NEGATIVE (Neg); LEUKOCYTE ESTERASE ,URINE MODERATE (Neg); NITRITES, URINE POSITIVE (Neg); OCCULT BLOOD,URINE LARGE (Neg); PROTEIN,URINE 100 mg/dl (Neg); UA COLLECTION TYPE FOLEY CATH; UROBILINOGEN,URINE 0.2 E.U/dL (0.2-1.0)
[2019-05-04] MEDS ORDERED: CefTRIAXone 1000mg IM Kit (w/lidocaine diluent) IM ONE (15:50)
[2019-05-04] MEDS ORDERED: CEPH500C5 PO (15:52)
[2019-05-04] MEDS ORDERED: cephalexin 250mg capsule PO ONE (15:55)
[2019-05-04 15:56] LABS: BACTERIA,URINE 2+ /HPF (Neg); SQUAMOUS EPITHELIAL CELL,UR NONE SEEN /LPF (FEW); WBC CLUMPS,URINE MANY /HPF (NEGATIVE); WBC,URINE TNTC /HPF (0-4)
--- NOTE | 2019-05-04 16:14 | NUR ---
SPOKE TO [facility] WHO STATES THEIR TRANSPORT BUS IS OUT OF SERVICE FOR THE DAY AND REPORTS "[facility]" IS HIS TRANSPORTATION. CONTACTED [facility] AT [phone].
[2019-05-04 16:28] VITALS: BP 152/82
== END 2019-05-04 17:01 | disposition home or self-care (01) ==
LOC: ER 13:56
DX: R33.9 Retention of urine, unspecified (principal); N39.0 Urinary tract infection, site not specified; N28.9 Disorder of kidney and ureter, unspecified; E78.00 Pure hypercholesterolemia, unspecified; I10 Essential (primary) hypertension; F03.90 Unspecified dementia, unspecified severity, without behavioral disturbance, psychotic disturbance, mood disturbance, and anxiety; Z79.899 Other long term (current) drug therapy; Z79.82 Long term (current) use of aspirin; Z79.2 Long term (current) use of antibiotics; Z88.4 Allergy status to anesthetic agent; Z88.8 Allergy status to other drugs, medicaments and biological substances; Z60.2 Problems related to living alone
CPT/HCPCS: 36415; 51702; 80048; 81001; 87077; 87088; 87186; 99284

== ENCOUNTER 2019-05-11 10:05 | Inpatient (IN) | payer MEDICARE ==
[~2019-05-11] VITALS: Ht 172.7 cm; Wt 90.0 kg
[~2019-05-11 10:05] MED LIST changes: +CEPH500C5 PO
--- NOTE | 2019-05-11 12:44 | NUR ---
assumed care of pt from Ever MORAN, pt is resting quietly on gurney, resp even and unlabored, luong draining yellow, cloudy, sediment 150ml of urine in bag
--- NOTE | 2019-05-11 12:48 | NUR ---
PT C/O LOWER ABD PAIN OFF AND ON, PAIN AT HEAD OF PENIS, NO SWELLING, NO REDNESS, INDWELLING ECKERT
[2019-05-11 12:59] LABS: CLARITY,URINE TURBID (Clear); COLOR,URINE YELLOW (Yellow); GLUCOSE, URINE 100 mg/dl (Neg); KETONES,URINE NEGATIVE (Neg); LEUKOCYTE ESTERASE ,URINE LARGE (Neg); NITRITES, URINE POSITIVE (Neg); OCCULT BLOOD,URINE LARGE (Neg); PH,URINE 5.5 (4.8-8.0); PROTEIN,URINE 100 mg/dl (Neg); UROBILINOGEN,URINE 0.2 E.U/dL (0.2-1.0)
[2019-05-11 12:59] LABS: BASOPHILS # (AUTO) 0.1 X10'3 (0-0.2); BASOPHILS % (AUTO) 0.8 % (0-1); EOSINOPHILS # (AUTO) 0.3 X10'3 (0-0.9); EOSINOPHILS % (AUTO) 3.9 % (0-6); LYMPHOCYTES # (AUTO) 0.6 X10'3 (1.1-4.8); LYMPHOCYTES % (AUTO) 7.6 % (21-51); MEAN CORPUSCULAR HEMOGLOBIN 28.6 PG (27.0-31.0); MEAN CORPUSCULAR HGB CONC 32.5 g/dL (33.0-36.5); MEAN CORPUSCULAR VOLUME 87.9 FL (78-98); MEAN PLATELET VOLUME 8.1 FL (7.4-10.4); MONOCYTES # (AUTO) 0.5 X10'3 (0-0.9); NEUTROPHILS % (AUTO) 81.7 % (42-75); PLATELET COUNT 201 X10'3 (140-440); RED BLOOD COUNT 4.55 X10'6 (4.70-6.10); RED CELL DISTRIBUTION WIDTH 15.2 % (11.5-14.5); WHITE BLOOD COUNT 8.5 X10'3 (4.5-11.0)
[2019-05-11 13:07] LABS: UA COLLECTION TYPE FOLEY CATH
[2019-05-11 13:09] LABS: BACTERIA,URINE 2+ /HPF (Neg); SQUAMOUS EPITHELIAL CELL,UR FEW /LPF (FEW); WBC CLUMPS,URINE FEW /HPF (NEGATIVE); WBC,URINE TNTC /HPF (0-4)
--- NOTE | 2019-05-11 13:26 | NUR ---
PT IS SLEEPING, RESP EVEN AND UNLABORED, ECKERT DRAINING YELLOW URINE WITH LESS SEDIMENT
[2019-05-11 13:33] LABS: ALANINE AMINOTRANSFERASE 26 U/L (12-78); ALBUMIN 3.2 G/DL (3.4-5.0); ALBUMIN/GLOBULIN RATIO 0.8 (1.1-1.5); ALKALINE PHOSPHATASE 174 IU/L (46-116); ANION GAP 9 (8-16); ASPARTATE AMINO TRANSFERASE 17 U/L (10-37); BILIRUBIN,TOTAL 0.5 MG/DL (0.1-1.0); BLOOD UREA NITROGEN 47 MG/DL (7-18); BUN/CREATININE RATIO 18.7 (5.4-32.0); CALCIUM 8.3 MG/DL (8.5-10.1); CHLORIDE 104 MMOL/L (99-107); CREATININE 2.51 MG/DL (0.60-1.10); GLUCOSE 263 MG/DL (70-104); LIPASE 441 U/L (73-393); POTASSIUM 3.9 MMOL/L (3.5-5.1); SODIUM 140 MMOL/L (135-145); TOTAL PROTEIN 7.2 G/DL (6.4-8.2); eGFR 24 ML/MIN
[2019-05-11] MEDS ORDERED: cefepime 1GM/NS ADD-VANTAGE 100 ML IV ONE (13:40)
--- NOTE | 2019-05-11 14:00 | NUR ---
PT CONTINUES TO SLEEP, EASILY AROUSEABLE, DR URIBE GAVE VERBAL ORDER--NO BLOOD CX NEEDED, PT IS WAITING TO BE EVALUATED BY HOSPITALIST
[2019-05-11] MEDS ORDERED: bisacodyl 10mg suppository rectal RC PRN (14:20)
[2019-05-11] MEDS ORDERED: magnesium 4gm in 100ml NS 100 ML IV PRN (14:20)
[2019-05-11] MEDS ORDERED: mag hydrox/Alum hydrox/simeth 30ml oral suspension PO PRN (14:20)
[2019-05-11] MEDS ORDERED: magnesium Cl slow-release 64mg tablet PO PRN (14:20)
[2019-05-11] MEDS ORDERED: ondansetron/PF 4mg/2ml inj IV PRN (14:20)
[2019-05-11] MEDS ORDERED: metoclopramide 5 mg/ml inj IV PRN (14:20)
[2019-05-11] MEDS ORDERED: magnesium hydroxide 30ml (MOM) UD suspension PO PRN (14:20)
[2019-05-11] MEDS ORDERED: acetaminophen 325mg tablet PO PRN ×2 (14:20)
[2019-05-11] MEDS ORDERED: HYDROcodone/acetaminophen 10/325mg tab PO PRN (14:20)
[2019-05-11] MEDS ORDERED: potassium Cl 20 mEq SR tablet PO PRN ×2 (14:20)
[2019-05-11] MEDS ORDERED: potassium CL 10mEq/100ml bag 100 ML IV PRN ×2 (14:20)
[2019-05-11] MEDS ORDERED: magnesium 2GM in 50ml NS 50 ML IV PRN (14:20)
[2019-05-11] MEDS: cefepime inj. 1 GM in normal saline 100ml IV soln 100 ML IV SCH ×2 (14:46→23:58)
[2019-05-11] MEDS ORDERED: ACET-75 PO (14:49)
[2019-05-11] MEDS ORDERED: ASPI-611 PO (14:52)
[2019-05-11] MEDS ORDERED: IBUP-1984 PO (14:52)
[2019-05-11] MEDS ORDERED: FURO20TA4 PO (14:53)
[2019-05-11] MEDS ORDERED: ISOS60TA4 PO (14:55)
[2019-05-11] MEDS: normal saline 1000ml 1,000 ML IV SCH (14:58)
--- NOTE | 2019-05-11 14:59 | NUR ---
PT'S BROTHER IN LAW AT BEDSIDE TO SEE PT, AWARE OF PLAN TO ADMIT, PT CONTINUES TO SLEEP QUIETLY ON GURNEY, RESP EVEN AND UNLABORED, NS AT 100ML/HR INFUSING VIA PUMP, WAITING FOR BED ASSIGNMENT
--- NOTE | 2019-05-11 15:02 | NUR ---
ECKERT NOW DRAINING YELLOW URINE,NO SEDIMENT, 250ML URINE OUT
[2019-05-11] MEDS ORDERED: LORA10TA7 PO (15:03)
[2019-05-11] MEDS ORDERED: FLO0.4C PO (15:03)
[2019-05-11] MEDS ORDERED: LISI-600 PO (15:03)
[2019-05-11] MEDS ORDERED: LEVO25TA7 PO (15:03)
[2019-05-11] MEDS ORDERED: MULT-933 PO (15:03)
[2019-05-11] MEDS ORDERED: METH1TAB32 PO (15:03)
[2019-05-11] MEDS ORDERED: METO25TA6 PO (15:03)
[2019-05-11] MEDS ORDERED: DOCU-272 PO (15:10)
[2019-05-11 16:00] VITALS: BP 146/73
--- NOTE | 2019-05-11 16:03 | NUR ---
PHONE REPORT TO LUISA ZULETA. PATIENT TO GO TO ROOM 4005C ON [facility] MONITORED WITH ALL BELONGINGS
[2019-05-11 18:00] VITALS: BP 146/73
[2019-05-11] MEDS: methenamine hippurate 1gm tablet PO SCH (19:40)
[2019-05-11] MEDS: tamsulosin 0.4mg capsule PO SCH (19:42)
[2019-05-11] MEDS: gabapentin 300mg capsule PO SCH (19:42)
[2019-05-11] MEDS ORDERED: temazepam 15mg capsule PO PRN (21:00)
[2019-05-11 22:00] VITALS: BP 154/76
[2019-05-12] MEDS: normal saline 1000ml 1,000 ML IV SCH ×3 (01:37→20:16)
[2019-05-12 06:00] VITALS: BP 160/74
--- NOTE | 2019-05-12 06:17 | NUR ---
Problems reprioritized. Patient report given, questions answered & plan of care reviewed with LUISA Hdez.
--- NOTE | 2019-05-12 06:28 | NUR ---
Patient in room ORTHO 4007. I have received report from Noreen Mendoza RN and had the opportunity to ask questions and assume patient care.
[2019-05-12 06:47] LABS: BASOPHILS % (AUTO) 0.3 % (0-1); EOSINOPHILS # (AUTO) 0.4 X10'3 (0-0.9); EOSINOPHILS % (AUTO) 6.6 % (0-6); HEMATOCRIT 38.8 % (42.0-52.0); HEMOGLOBIN 12.8 g/dl (14.0-17.9); LYMPHOCYTES # (AUTO) 0.6 X10'3 (1.1-4.8); LYMPHOCYTES % (AUTO) 10.2 % (21-51); MEAN CORPUSCULAR HEMOGLOBIN 28.6 PG (27.0-31.0); MEAN CORPUSCULAR HGB CONC 32.9 g/dL (33.0-36.5); MEAN PLATELET VOLUME 8.2 FL (7.4-10.4); MONOCYTES # (AUTO) 0.5 X10'3 (0-0.9); MONOCYTES % (AUTO) 7.6 % (2-12); NEUTROPHILS # (AUTO) 4.6 X10'3 (1.8-7.7); NEUTROPHILS % (AUTO) 75.3 % (42-75); PLATELET COUNT 192 X10'3 (140-440); RED BLOOD COUNT 4.46 X10'6 (4.70-6.10); RED CELL DISTRIBUTION WIDTH 15.3 % (11.5-14.5); WHITE BLOOD COUNT 6.2 X10'3 (4.5-11.0)
[2019-05-12 07:03] LABS: ALANINE AMINOTRANSFERASE 24 U/L (12-78); ALBUMIN 2.8 G/DL (3.4-5.0); ALBUMIN/GLOBULIN RATIO 0.8 (1.1-1.5); ALKALINE PHOSPHATASE 159 IU/L (46-116); ANION GAP 10 (8-16); ASPARTATE AMINO TRANSFERASE 18 U/L (10-37); BILIRUBIN,TOTAL 0.7 MG/DL (0.1-1.0); BLOOD UREA NITROGEN 37 MG/DL (7-18); BUN/CREATININE RATIO 18.6 (5.4-32.0); CALCIUM 8.3 MG/DL (8.5-10.1); CHLORIDE 107 MMOL/L (99-107); CREATININE 1.99 MG/DL (0.60-1.10); GLUCOSE 137 MG/DL (70-104); MAGNESIUM 1.8 MG/DL (1.5-2.4); PHOSPHORUS 2.7 MG/DL (2.3-4.5); POTASSIUM 3.9 MMOL/L (3.5-5.1); SODIUM 142 MMOL/L (135-145); TOTAL CARBON DIOXIDE 24.9 MMOL/L (24-32); TOTAL PROTEIN 6.5 G/DL (6.4-8.2); eGFR 32 ML/MIN
[2019-05-12] MEDS: gabapentin 300mg capsule PO SCH (07:37)
[2019-05-12] MEDS: cefepime inj. 1 GM in normal saline 100ml IV soln 100 ML IV SCH ×2 (07:37→15:27)
[2019-05-12] MEDS: metoprolol tartrate 25mg tablet PO SCH (07:37)
[2019-05-12] MEDS: aspirin 81mg tablet.DR PO SCH (07:37)
[2019-05-12] MEDS: loratadine 10mg tablet PO SCH (07:37)
[2019-05-12] MEDS: isosorbide mononitrate 30mg tab.SR.24H PO SCH (07:37)
[2019-05-12] MEDS: furosemide 20MG tablet PO SCH (07:37)
[2019-05-12] MEDS: docusate sod 100mg capsule PO SCH (07:37)
[2019-05-12] MEDS: tamsulosin 0.4mg capsule PO SCH ×2 (07:37→19:46)
[2019-05-12] MEDS: methenamine hippurate 1gm tablet PO SCH (08:00)
[2019-05-12] MEDS: K and/or MAG REPLACEMENT MC SCH (08:00)
[2019-05-12 10:00] VITALS: BP 135/77
[2019-05-12 18:00] VITALS: BP 142/74
--- NOTE | 2019-05-12 19:00 | NUR ---
Patient in room ORTHO 4007. I have received report from Ketty MORAN and had the opportunity to ask questions and assume patient care.
[2019-05-12] MEDS: lactobacillus rhamnosus 10,000 MMU CELLS/CAPSULE PO SCH (19:46)
[2019-05-12] MEDS: HYDROcodone/acetaminophen 5mg/325mg tablet PO PRN (19:50)
[2019-05-12 22:54] VITALS: BP 163/83
--- NOTE | 2019-05-12 22:56 | NUR ---
Pt has been moaning out in pain, he was holding his penis. He has been draining cloudy urine with sediment moderately. Attempted to irrigate catheter and he seemed painful during. I bladder scanned him and he showed 175 ml of urine. I irrigated his catheter with sterile saline once again he clutched at his penis and called out in pain. I gently removed his hand and a large amount of was looked like pus drained and as he drained it was causing him pain. after about 200ml the was some blood in the urine. I irrigated him once more and he didn't feel any pain. I will continue to monitor.
[2019-05-13] MEDS: cefepime inj. 1 GM in normal saline 100ml IV soln 100 ML IV SCH ×2 (01:22→08:17)
[2019-05-13 06:00] VITALS: BP 169/93
[2019-05-13] MEDS: normal saline 1000ml 1,000 ML IV SCH ×3 (06:16→21:11)
--- NOTE | 2019-05-13 06:48 | NUR ---
Patient in room ORTHO 4007. I have received report from and had the opportunity to ask questions and assume patient care LUISA Ba.
[2019-05-13 07:04] LABS: BASOPHILS % (AUTO) 0.6 % (0-1); EOSINOPHILS # (AUTO) 0.4 X10'3 (0-0.9); EOSINOPHILS % (AUTO) 7.7 % (0-6); HEMATOCRIT 38.6 % (42.0-52.0); HEMOGLOBIN 12.8 g/dl (14.0-17.9); LYMPHOCYTES # (AUTO) 0.8 X10'3 (1.1-4.8); LYMPHOCYTES % (AUTO) 13.9 % (21-51); MEAN CORPUSCULAR HEMOGLOBIN 28.6 PG (27.0-31.0); MEAN CORPUSCULAR HGB CONC 33.1 g/dL (33.0-36.5); MEAN CORPUSCULAR VOLUME 86.5 FL (78-98); MEAN PLATELET VOLUME 7.9 FL (7.4-10.4); MONOCYTES # (AUTO) 0.5 X10'3 (0-0.9); MONOCYTES % (AUTO) 8.1 % (2-12); NEUTROPHILS # (AUTO) 3.9 X10'3 (1.8-7.7); NEUTROPHILS % (AUTO) 69.7 % (42-75); PLATELET COUNT 195 X10'3 (140-440); RED BLOOD COUNT 4.46 X10'6 (4.70-6.10); WHITE BLOOD COUNT 5.6 X10'3 (4.5-11.0)
[2019-05-13 07:23] LABS: ALANINE AMINOTRANSFERASE 22 U/L (12-78); ALBUMIN 2.8 G/DL (3.4-5.0); ALBUMIN/GLOBULIN RATIO 0.8 (1.1-1.5); ALKALINE PHOSPHATASE 162 IU/L (46-116); ANION GAP 8 (8-16); ASPARTATE AMINO TRANSFERASE 15 U/L (10-37); BILIRUBIN,TOTAL 0.7 MG/DL (0.1-1.0); BLOOD UREA NITROGEN 30 MG/DL (7-18); CALCIUM 8.1 MG/DL (8.5-10.1); CHLORIDE 110 MMOL/L (99-107); CREATININE 1.87 MG/DL (0.60-1.10); GLUCOSE 113 MG/DL (70-104); MAGNESIUM 1.7 MG/DL (1.5-2.4); PHOSPHORUS 2.4 MG/DL (2.3-4.5); POTASSIUM 4.1 MMOL/L (3.5-5.1); SODIUM 143 MMOL/L (135-145); TOTAL CARBON DIOXIDE 24.7 MMOL/L (24-32); TOTAL PROTEIN 6.5 G/DL (6.4-8.2); eGFR 34 ML/MIN
[2019-05-13] MEDS: K and/or MAG REPLACEMENT MC SCH (08:00)
[2019-05-13] MEDS: docusate sod 100mg capsule PO SCH (08:17)
[2019-05-13] MEDS: tamsulosin 0.4mg capsule PO SCH ×2 (08:17→19:33)
[2019-05-13] MEDS: lactobacillus rhamnosus 10,000 MMU CELLS/CAPSULE PO SCH ×2 (08:17→19:33)
[2019-05-13] MEDS: gabapentin 300mg capsule PO SCH (08:17)
[2019-05-13] MEDS: aspirin 81mg tablet.DR PO SCH (08:17)
[2019-05-13] MEDS: metoprolol tartrate 25mg tablet PO SCH (08:18)
[2019-05-13] MEDS: furosemide 20MG tablet PO SCH (08:18)
[2019-05-13] MEDS: loratadine 10mg tablet PO SCH (08:18)
[2019-05-13] MEDS: isosorbide mononitrate 30mg tab.SR.24H PO SCH (08:18)
[2019-05-13] MEDS: HYDROcodone/acetaminophen 5mg/325mg tablet PO PRN ×2 (09:51→22:07)
[2019-05-13 10:00] VITALS: BP 148/58
[2019-05-13 17:00] VITALS: BP 134/70
--- NOTE | 2019-05-13 18:40 | NUR ---
Patient in room ORTHO 4007. I have received report from Sabina MORAN and had the opportunity to ask questions and assume patient care.
--- NOTE | 2019-05-13 18:41 | NUR ---
Problems reprioritized. Patient report given, questions answered & plan of care reviewed with LUISA Treviño.
[2019-05-13 22:00] VITALS: BP 154/76
[2019-05-14 06:00] VITALS: BP 168/91
--- NOTE | 2019-05-14 06:15 | NUR ---
Patient in room ORTHO 4007. I have received report from and had the opportunity to ask questions and assume patient care LUISA Treviño.
--- NOTE | 2019-05-14 06:15 | NUR ---
Problems reprioritized. Patient report given, questions answered & plan of care reviewed with LUISA Treviño.
[2019-05-14 06:24] LABS: BASOPHILS % (AUTO) 0.7 % (0-1); EOSINOPHILS # (AUTO) 0.4 X10'3 (0-0.9); EOSINOPHILS % (AUTO) 7.9 % (0-6); HEMATOCRIT 37.3 % (42.0-52.0); HEMOGLOBIN 12.2 g/dl (14.0-17.9); LYMPHOCYTES # (AUTO) 0.9 X10'3 (1.1-4.8); LYMPHOCYTES % (AUTO) 16.1 % (21-51); MEAN CORPUSCULAR HEMOGLOBIN 28.7 PG (27.0-31.0); MEAN CORPUSCULAR HGB CONC 32.8 g/dL (33.0-36.5); MEAN CORPUSCULAR VOLUME 87.4 FL (78-98); MEAN PLATELET VOLUME 7.9 FL (7.4-10.4); MONOCYTES # (AUTO) 0.5 X10'3 (0-0.9); MONOCYTES % (AUTO) 8.9 % (2-12); NEUTROPHILS # (AUTO) 3.6 X10'3 (1.8-7.7); NEUTROPHILS % (AUTO) 66.4 % (42-75); PLATELET COUNT 172 X10'3 (140-440); RED BLOOD COUNT 4.27 X10'6 (4.70-6.10); RED CELL DISTRIBUTION WIDTH 14.9 % (11.5-14.5); WHITE BLOOD COUNT 5.4 X10'3 (4.5-11.0)
[2019-05-14 06:28] LABS: ALANINE AMINOTRANSFERASE 19 U/L (12-78); ALBUMIN 2.6 G/DL (3.4-5.0); ALBUMIN/GLOBULIN RATIO 0.7 (1.1-1.5); ALKALINE PHOSPHATASE 153 IU/L (46-116); ANION GAP 9 (8-16); ASPARTATE AMINO TRANSFERASE 18 U/L (10-37); BILIRUBIN,TOTAL 0.5 MG/DL (0.1-1.0); BLOOD UREA NITROGEN 26 MG/DL (7-18); BUN/CREATININE RATIO 15.5 (5.4-32.0); CALCIUM 8.1 MG/DL (8.5-10.1); CHLORIDE 111 MMOL/L (99-107); CREATININE 1.68 MG/DL (0.60-1.10); GLUCOSE 103 MG/DL (70-104); MAGNESIUM 1.6 MG/DL (1.5-2.4); PHOSPHORUS 2.8 MG/DL (2.3-4.5); POTASSIUM 4.2 MMOL/L (3.5-5.1); SODIUM 143 MMOL/L (135-145); TOTAL CARBON DIOXIDE 23.3 MMOL/L (24-32); TOTAL PROTEIN 6.1 G/DL (6.4-8.2); eGFR 39 ML/MIN
--- NOTE | 2019-05-14 06:52 | NUR ---
Patient in room ORTHO 4007. I have received report from Kamila MORAN and had the opportunity to ask questions and assume patient care.
[2019-05-14] MEDS ORDERED: levoTHYROXINE 25mcg tablet PO SCH (07:00)
[2019-05-14] MEDS: K and/or MAG REPLACEMENT MC SCH (08:00)
[2019-05-14] MEDS ORDERED: cefepime inj. 1 GM in normal saline 100ml IV soln 100 ML IV SCH (08:00)
[2019-05-14] MEDS: loratadine 10mg tablet PO SCH (09:23)
[2019-05-14] MEDS: docusate sod 100mg capsule PO SCH (09:24)
[2019-05-14] MEDS: lactobacillus rhamnosus 10,000 MMU CELLS/CAPSULE PO SCH (09:25)
[2019-05-14] MEDS: aspirin 81mg tablet.DR PO SCH (09:26)
[2019-05-14] MEDS: tamsulosin 0.4mg capsule PO SCH (09:26)
[2019-05-14] MEDS: isosorbide mononitrate 30mg tab.SR.24H PO SCH (09:27)
[2019-05-14] MEDS: furosemide 20MG tablet PO SCH (09:28)
[2019-05-14] MEDS: metoprolol tartrate 25mg tablet PO SCH (09:30)
[2019-05-14] MEDS: gabapentin 300mg capsule PO SCH (09:31)
[2019-05-14 10:00] VITALS: BP 169/82
[2019-05-14] MEDS: normal saline 1000ml 1,000 ML IV SCH (12:16)
--- NOTE | 2019-05-14 12:25 | NUR ---
Student Medication Administration:For this medication-pass time frame 4852-0330, all medications were reviewed, administered and documented per hospital policy by Kya Mock. Student documentation:I have reviewed and agree with all interventions, assessments performed and documented by Kya Mock.
[2019-05-14] MEDS: HYDROcodone/acetaminophen 5mg/325mg tablet PO PRN (14:30)
--- NOTE | 2019-05-14 14:40 | NUR ---
DISCHARGE: pt picked up by Samantha Cargo to transfer to [facility] to continue IV abx therapy r/t UTI, +pseudomonas. PICC line nurse/America placed extended IV to HENRI arm. VSS, FC in place draining to gravity, light-yellow, normal odor, minute sediment. RR even/unlabored, Denies SOB, resp distress, N/V, vertigo at DC. pt administered 5/325mg tab [place] for pain/transport. Report called into facility to KARIME Dominique II.
== END 2019-05-14 14:30 | DRG 698 ==
LOC: ER 10:06 → ED HOLD 14:27 → ORTHO 4S 16:05
PROVIDERS: ADMIT Family Medicine; ATTEND Family Medicine
DX: T83.511A Infection and inflammatory reaction due to indwelling urethral catheter, initial encounter (principal); N17.0 Acute kidney failure with tubular necrosis; G93.41 Metabolic encephalopathy; B96.5 Pseudomonas (aeruginosa) (mallei) (pseudomallei) as the cause of diseases classified elsewhere; D64.9 Anemia, unspecified; E03.9 Hypothyroidism, unspecified; E78.00 Pure hypercholesterolemia, unspecified; E78.5 Hyperlipidemia, unspecified; F03.90 Unspecified dementia, unspecified severity, without behavioral disturbance, psychotic disturbance, mood disturbance, and anxiety; I12.9 Hypertensive chronic kidney disease with stage 1 through stage 4 chronic kidney disease, or unspecified chronic kidney disease; G62.9 Polyneuropathy, unspecified; Y84.6 Urinary catheterization as the cause of abnormal reaction of the patient, or of later complication, without mention of misadventure at the time of the procedure; N40.1 Benign prostatic hyperplasia with lower urinary tract symptoms; R33.8 Other retention of urine; I25.10 Atherosclerotic heart disease of native coronary artery without angina pectoris; J31.0 Chronic rhinitis; N18.9 Chronic kidney disease, unspecified; Z66 Do not resuscitate; Z87.440 Personal history of urinary (tract) infections; Z88.6 Allergy status to analgesic agent; Z79.899 Other long term (current) drug therapy; Z79.82 Long term (current) use of aspirin; Y92.89 Other specified places as the place of occurrence of the external cause
CPT/HCPCS: 36415; 74176; 76937; 80053; 81001; 83690; 83735; 84100; 84443; 85025; 87077; 87081; 87088; 87186; 96365; 97110; 97116; 97161; 97530; 99285; G0378; J0692; J7030

== ENCOUNTER 2019-05-27 10:40 | Inpatient (IN) | payer MEDICARE ==
[~2019-05-27] VITALS: Ht 177.8 cm; Wt 84.0 kg
[~2019-05-27 10:40] MED LIST changes: +ACET-75 PO; -AMLO2.5T2 PO; -ASPI-1265 PO; +ASPI-611 PO; -CEPH500C5 PO; -DIPH50CA3 PO; +DOCU-272 PO; +FLO0.4C PO; +FURO20TA4 PO; +IBUP-1984 PO; -ISOS30TA9 PO; +ISOS60TA4 PO; -KEN0.1O TP; -LACT1CAP26 PO; +LEVO25TA7 PO; -LINE600T14 PO; +LISI-600 PO; -LORA10CA PO; +LORA10TA7 PO; -MELA3TAB64 PO; -METO-395 PO; +METO25TA6 PO; +MULT-933 PO; -SODI650T29 PO; -SYN0.088T PO; -tamsulosin capsule PO
[2019-05-27] MEDS ORDERED: normal saline 1000ML IV soln IVB ONE ×2 (10:50→12:25)
--- NOTE | 2019-05-27 11:11 | NUR ---
extended iv in left upper arm. pt in ct via tammi
[2019-05-27 11:52] LABS: BASOPHILS % (AUTO) 0.3 % (0-1); EOSINOPHILS # (AUTO) 0.1 X10'3 (0-0.9); EOSINOPHILS % (AUTO) 0.7 % (0-6); HEMATOCRIT 44.5 % (42.0-52.0); HEMOGLOBIN 14.4 g/dl (14.0-17.9); LYMPHOCYTES # (AUTO) 0.4 X10'3 (1.1-4.8); LYMPHOCYTES % (AUTO) 3.4 % (21-51); MEAN CORPUSCULAR HEMOGLOBIN 28.3 PG (27.0-31.0); MEAN CORPUSCULAR HGB CONC 32.5 g/dL (33.0-36.5); MEAN CORPUSCULAR VOLUME 87.1 FL (78-98); MONOCYTES # (AUTO) 0.5 X10'3 (0-0.9); MONOCYTES % (AUTO) 4.9 % (2-12); NEUTROPHILS # (AUTO) 9.7 X10'3 (1.8-7.7); NEUTROPHILS % (AUTO) 90.7 % (42-75); PLATELET COUNT 166 X10'3 (140-440); RED CELL DISTRIBUTION WIDTH 15.1 % (11.5-14.5); WHITE BLOOD COUNT 10.7 X10'3 (4.5-11.0)
[2019-05-27 11:57] LABS: PARTIAL THROMBOPLASTIN TIME 25 SECONDS (22-32)
[2019-05-27 12:00] LABS: ALANINE AMINOTRANSFERASE 21 U/L (12-78); ALBUMIN 3.8 G/DL (3.4-5.0); ALKALINE PHOSPHATASE 180 IU/L (46-116); ANION GAP 13 (8-16); ASPARTATE AMINO TRANSFERASE 19 U/L (10-37); BILIRUBIN,TOTAL 0.7 MG/DL (0.1-1.0); BLOOD UREA NITROGEN 45 MG/DL (7-18); BUN/CREATININE RATIO 21.7 (5.4-32.0); CALCIUM 9.1 MG/DL (8.5-10.1); CHLORIDE 107 MMOL/L (99-107); CREATININE 2.07 MG/DL (0.60-1.10); GLUCOSE 178 MG/DL (70-104); POTASSIUM 4.4 MMOL/L (3.5-5.1); SODIUM 144 MMOL/L (135-145); TOTAL CARBON DIOXIDE 24.2 MMOL/L (24-32); TOTAL PROTEIN 7.7 G/DL (6.4-8.2); eGFR 31 ML/MIN
[2019-05-27 12:03] LABS: TROPONIN I 0.05 NG/ML (0.0-0.05)
[2019-05-27 12:04] LABS: CLARITY,URINE CLOUDY (Clear); COLOR,URINE YELLOW (Yellow); GLUCOSE, URINE NEGATIVE (Neg); KETONES,URINE NEGATIVE (Neg); LEUKOCYTE ESTERASE ,URINE MODERATE (Neg); NITRITES, URINE POSITIVE (Neg); OCCULT BLOOD,URINE LARGE (Neg); PH,URINE 5.5 (4.8-8.0); PROTEIN,URINE 100 mg/dl (Neg); UROBILINOGEN,URINE 0.2 E.U/dL (0.2-1.0)
[2019-05-27 12:05] LABS: UA COLLECTION TYPE FOLEY CATH
[2019-05-27 12:11] LABS: ETHANOL < 0.010 GM/DL (0.0-0.010)
[2019-05-27] MEDS ORDERED: cefepime 1GM/NS ADD-VANTAGE 100 ML IV ONE (12:15)
[2019-05-27 12:17] LABS: URINE AMPHETAMINE SCREEN NEGATIVE (Neg); URINE BARBITUATE SCREEN NEGATIVE (Neg); URINE BENZODIAZEPINES SCREEN NEGATIVE (Neg); URINE CANNABINOID SCREEN NEGATIVE (Neg); URINE COCAINE SCREEN NEGATIVE (Neg); URINE METHADONE SCREEN NEGATIVE (Neg); URINE OPIATE SCREEN NEGATIVE (Neg); URINE PHENCYCLIDINE SCREEN NEGATIVE (Neg)
[2019-05-27 12:18] LABS: LACTIC SEPSIS 4.8 MMOL/L (0.4-2.0)
--- NOTE | 2019-05-27 12:19 | NUR ---
la [address] abel
[2019-05-27] MEDS ORDERED: cefepime 1GM in D5W 50mL 50 ML IV ONE (12:20)
[2019-05-27 12:32] LABS: RBC,URINE 50-100 /HPF (0-2); WBC,URINE TNTC /HPF (0-4)
[2019-05-27 12:35] LABS: BACTERIA,URINE 3+ /HPF (Neg); SQUAMOUS EPITHELIAL CELL,UR NONE SEEN /LPF (FEW); TRANSITIONAL EPI CELLS,URINE FEW /HPF; WBC CLUMPS,URINE MODERATE /HPF (NEGATIVE)
[2019-05-27] MEDS ORDERED: vancomycin/NS 1 GM ADD-VANTAGE 250 ML IV ONE (12:40)
[2019-05-27] MEDS ORDERED: fentaNYL/PF 50MCG/1 ML 2ML syringe IV ONE ×2 (12:40→14:05)
[2019-05-27] MEDS ORDERED: magnesium hydroxide 30ml (MOM) UD suspension PO PRN ×2 (12:55→17:30)
[2019-05-27] MEDS ORDERED: acetaminophen 325mg tablet PO PRN (12:55)
[2019-05-27] MEDS ORDERED: mag hydrox/Alum hydrox/simeth 30ml oral suspension PO PRN (12:55)
[2019-05-27] MEDS ORDERED: ondansetron/PF 4mg/2ml inj IV PRN (12:55)
[2019-05-27] MEDS ORDERED: BISA10SU60 RC (14:05)
[2019-05-27] MEDS ORDERED: LACT1CAP65 PO (14:05)
[2019-05-27] MEDS ORDERED: MAGN400O6 PO (14:05)
[2019-05-27] MEDS ORDERED: NITR100C6 PO (14:05)
--- NOTE | 2019-05-27 14:18 | NUR ---
SPOKE WITH ALICIA [phone] AT [facility] AND GAVE HER UPDATE. PT HAS UTI, AND ANTIBOTICS WERE GIVEN. PT IS TO BE ADMITTED.
--- NOTE | 2019-05-27 15:27 | NUR ---
brother in law at bedside. dr. abel talking with him re poc
[2019-05-27] MEDS: normal saline 1000ml 1,000 ML IV SCH ×2 (16:28→22:52)
--- NOTE | 2019-05-27 17:21 | NUR ---
RED RASHES NOTED ON CHEST AND BACK, PT ITCHING. INFORMED DR. BRAVO PT RECEIVED 2 DOSES OF FENTANYL AND HAS ALSO RECEIVED VANCOMYCIN MEDIPIME. DR. BRAVO WILL DC FENTANYL AND ORDER MORPHINE
[2019-05-27] MEDS ORDERED: lactulose 20gm/30ml cup PO ONE (17:30)
[2019-05-27] MEDS ORDERED: morphine 2 MG/ML inj. syringe IV PRN (17:30)
--- NOTE | 2019-05-27 17:34 | NUR ---
SPOKE TO DR. NISA BELTRAN FOR 25MG BENADRYL IV.
[2019-05-27] MEDS ORDERED: diphenhydrAMINE 50 mg/ml inj IV ONE (17:35)
--- NOTE | 2019-05-27 19:25 | NUR ---
Received report from CREDIT RISK ANALYTICS MANAGERLUISA Sampson. Patient to follow shortly.
--- NOTE | 2019-05-27 19:40 | NUR ---
Patient arrived to floor from ER via gurney. Transferred into bed, and VS initiated. Patient alert but oriented to his self only.
[2019-05-27 20:00] VITALS: BP 144/60
[2019-05-27] MEDS: lactobacillus rhamnosus 10,000 MMU CELLS/CAPSULE PO SCH (20:00)
[2019-05-27] MEDS: cefepime 1GM in D5W 50mL 50 ML IV SCH (21:37)
[2019-05-27] MEDS: nitrofuran/nitrofuran macrocrysal 100 MG capsule PO SCH (21:41)
[2019-05-27] MEDS: atorvastatin 20mg tablet PO SCH (21:42)
[2019-05-27] MEDS: heparin, porcine 5000 units/ml vial SQ SCH (21:46)
[2019-05-27] MEDS: diphenhydrAMINE 50 mg/ml inj IV PRN (22:56)
[2019-05-27 23:00] VITALS: BP 125/57
[2019-05-28 02:00] VITALS: BP 164/76
--- NOTE | 2019-05-28 03:21 | NUR ---
Called MD as patient is still itching/scratching and his rash is getting worse spreading over to the left side of his back and left chest, arms,lower abdomen and top of his legs -but not on his face. NEW ORDERS FOR 1: One time dose of prednisone 40mg PO now, increase benadryl to 50mg if needed, and hold on all ABX until the day MD has seen patient.
[2019-05-28] MEDS ORDERED: predniSONE 20 mg tablet PO ONE (03:30)
[2019-05-28] MEDS: normal saline 1000ml 1,000 ML IV SCH ×2 (05:29→21:46)
[2019-05-28 06:00] VITALS: BP 203/105
--- NOTE | 2019-05-28 06:00 | NUR ---
Patient report given to Bethany MORAN. Patient is actually saying a few words making sense.
[2019-05-28 06:20] LABS: ALBUMIN 3.5 G/DL (3.4-5.0); ANION GAP 7 (8-16); BLOOD UREA NITROGEN 31 MG/DL (7-18); BUN/CREATININE RATIO 18.1 (5.4-32.0); CALCIUM 9.5 MG/DL (8.5-10.1); CHLORIDE 109 MMOL/L (99-107); CREATININE 1.71 MG/DL (0.60-1.10); GLUCOSE 113 MG/DL (70-104); POTASSIUM 4.4 MMOL/L (3.5-5.1); SODIUM 142 MMOL/L (135-145); TOTAL CARBON DIOXIDE 25.9 MMOL/L (24-32); eGFR 38 ML/MIN
--- NOTE | 2019-05-28 06:30 | NUR ---
Patient in room U 3010. I have received report from LUISA Nolasco and had the opportunity to ask questions and assume patient care. Patient sleeping in bed, awaken for a skin check. Patient still has blotchy spots and redness to skin (back being the worse.) Patient complains of itching. Will continue to monitor, and hold ABX.
[2019-05-28 06:31] LABS: BASOPHILS % (AUTO) 0.5 % (0-1); EOSINOPHILS # (AUTO) 0.5 X10'3 (0-0.9); EOSINOPHILS % (AUTO) 7.1 % (0-6); HEMATOCRIT 43.6 % (42.0-52.0); HEMOGLOBIN 14.4 g/dl (14.0-17.9); LYMPHOCYTES # (AUTO) 0.4 X10'3 (1.1-4.8); LYMPHOCYTES % (AUTO) 5.7 % (21-51); MEAN CORPUSCULAR HEMOGLOBIN 28.6 PG (27.0-31.0); MEAN CORPUSCULAR HGB CONC 32.9 g/dL (33.0-36.5); MEAN CORPUSCULAR VOLUME 86.8 FL (78-98); MEAN PLATELET VOLUME 8.9 FL (7.4-10.4); MONOCYTES # (AUTO) 0.4 X10'3 (0-0.9); MONOCYTES % (AUTO) 4.6 % (2-12); NEUTROPHILS # (AUTO) 6.3 X10'3 (1.8-7.7); NEUTROPHILS % (AUTO) 82.1 % (42-75); PLATELET COUNT 167 X10'3 (140-440); RED BLOOD COUNT 5.02 X10'6 (4.70-6.10); RED CELL DISTRIBUTION WIDTH 14.9 % (11.5-14.5); WHITE BLOOD COUNT 7.7 X10'3 (4.5-11.0)
[2019-05-28] MEDS: lactobacillus rhamnosus 10,000 MMU CELLS/CAPSULE PO SCH ×2 (08:26→21:46)
[2019-05-28] MEDS: tamsulosin 0.4mg capsule PO SCH (08:29)
[2019-05-28] MEDS: docusate sod 100mg capsule PO SCH (08:29)
[2019-05-28] MEDS: levoTHYROXINE 25mcg tablet PO SCH (08:30)
[2019-05-28] MEDS: isosorbide mononitrate 30mg tab.SR.24H PO SCH (08:30)
[2019-05-28] MEDS: loratadine 10mg tablet PO SCH (08:30)
[2019-05-28] MEDS: furosemide 20MG tablet PO SCH (08:30)
[2019-05-28] MEDS: aspirin 81mg tablet.DR PO SCH (08:30)
[2019-05-28] MEDS: bisacodyl 10mg suppository rectal RC SCH (08:31)
[2019-05-28] MEDS: diphenhydrAMINE 50 mg/ml inj IV PRN (08:31)
[2019-05-28] MEDS: heparin, porcine 5000 units/ml vial SQ SCH ×2 (08:33→21:48)
[2019-05-28] MEDS: metoprolol tartrate 25mg tablet PO SCH (08:34)
[2019-05-28] MEDS: MEROPENEM 1GM/NS 50ML IVPB 50 ML IV SCH ×2 (10:14→16:09)
[2019-05-28 11:00] VITALS: BP 137/83
[2019-05-28] MEDS: cefepime 1GM in D5W 50mL 50 ML IV SCH (14:16)
--- NOTE | 2019-05-28 14:56 | NUR ---
PAGER ID: [phone] MESSAGE: [id number]: Kaila Lamb. Patient is NPO. Can we advance his diet? Thanks Bethany Lockett [phone]
[2019-05-28 15:30] VITALS: BP 137/80
--- NOTE | 2019-05-28 17:01 | NUR ---
PAGER ID: [phone] MESSAGE: [id number]: Kaila Lamb. Pt is NPO. Can we advance his diet to Heart Healthy? He is hungry. Thanks Bethany Lockett [phone]
--- NOTE | 2019-05-28 17:40 | NUR ---
[place] documentation: I have reviewed and agree with all interventions, assessments performed and documented by Marie MORAN. [place] Medication Administration: For this medication-pass time frame, all medication were reviewed, dispensed, administered and documented per hospital policy by Marie MORAN.
[2019-05-28 18:00] VITALS: BP 152/80
--- NOTE | 2019-05-28 18:20 | NUR ---
Problems reprioritized. Patient report given, questions answered & plan of care reviewed with Markos RN. Patient currently sleeping.
--- NOTE | 2019-05-28 18:42 | NUR ---
Patient in room PCU 3010. I have received report from Bethany Lockett RN and had the opportunity to ask questions and assume patient care.
[2019-05-28] MEDS: atorvastatin 20mg tablet PO SCH (21:47)
[2019-05-28] MEDS: nitrofuran/nitrofuran macrocrysal 100 MG capsule PO SCH (21:47)
[2019-05-28 22:00] VITALS: BP 141/78
[2019-05-29] MEDS: MEROPENEM 1GM/NS 50ML IVPB 50 ML IV SCH ×4 (01:21→20:28)
[2019-05-29 02:00] VITALS: BP 193/98
--- NOTE | 2019-05-29 02:37 | NUR ---
NOTIFIED called DR. Curtis pt bp 193/98 HR of MD Padmini. states that unless their is evidence of organ dysfunction he does not prescribe prn htn medication. will continue to monitor.
[2019-05-29] MEDS: normal saline 1000ml 1,000 ML IV SCH ×2 (04:52→14:52)
[2019-05-29 06:00] VITALS: BP 199/97
[2019-05-29 06:04] LABS: BASOPHILS % (AUTO) 0.5 % (0-1); EOSINOPHILS # (AUTO) 0.3 X10'3 (0-0.9); EOSINOPHILS % (AUTO) 3.8 % (0-6); HEMOGLOBIN 13.6 g/dl (14.0-17.9); LYMPHOCYTES # (AUTO) 0.7 X10'3 (1.1-4.8); LYMPHOCYTES % (AUTO) 9.2 % (21-51); MEAN CORPUSCULAR HEMOGLOBIN 28.6 PG (27.0-31.0); MEAN CORPUSCULAR HGB CONC 32.5 g/dL (33.0-36.5); MONOCYTES # (AUTO) 0.7 X10'3 (0-0.9); MONOCYTES % (AUTO) 8.4 % (2-12); NEUTROPHILS # (AUTO) 6.1 X10'3 (1.8-7.7); NEUTROPHILS % (AUTO) 78.1 % (42-75); PLATELET COUNT 156 X10'3 (140-440); RED BLOOD COUNT 4.77 X10'6 (4.70-6.10); RED CELL DISTRIBUTION WIDTH 15.2 % (11.5-14.5); WHITE BLOOD COUNT 7.8 X10'3 (4.5-11.0)
[2019-05-29 06:20] LABS: ALBUMIN 3.1 G/DL (3.4-5.0); ANION GAP 13 (8-16); BLOOD UREA NITROGEN 32 MG/DL (7-18); BUN/CREATININE RATIO 18.2 (5.4-32.0); CALCIUM 8.9 MG/DL (8.5-10.1); CHLORIDE 110 MMOL/L (99-107); CREATININE 1.76 MG/DL (0.60-1.10); GLUCOSE 99 MG/DL (70-104); POTASSIUM 4.2 MMOL/L (3.5-5.1); SODIUM 143 MMOL/L (135-145); TOTAL CARBON DIOXIDE 19.9 MMOL/L (24-32); eGFR 37 ML/MIN
--- NOTE | 2019-05-29 06:30 | NUR ---
Patient in room PCU 3010. I have received report from LUISA Burorws and had the opportunity to ask questions and assume patient care. Patient is pleasant this morning and his cognition has improved. Patient has no complaints at this time. Will continue to monitor.
--- NOTE | 2019-05-29 06:30 | NUR ---
Problems reprioritized. Patient report given, questions answered & plan of care reviewed with Bethany Lockett RN.
[2019-05-29] MEDS: tamsulosin 0.4mg capsule PO SCH (07:47)
[2019-05-29] MEDS: docusate sod 100mg capsule PO SCH (07:49)
[2019-05-29] MEDS: isosorbide mononitrate 30mg tab.SR.24H PO SCH (07:49)
[2019-05-29] MEDS: metoprolol tartrate 25mg tablet PO SCH (07:49)
[2019-05-29] MEDS: aspirin 81mg tablet.DR PO SCH (07:49)
[2019-05-29] MEDS: lactobacillus rhamnosus 10,000 MMU CELLS/CAPSULE PO SCH ×2 (07:50→20:23)
[2019-05-29] MEDS: furosemide 20MG tablet PO SCH (07:50)
[2019-05-29] MEDS: levoTHYROXINE 25mcg tablet PO SCH (07:50)
[2019-05-29] MEDS: bisacodyl 10mg suppository rectal RC SCH (07:50)
[2019-05-29] MEDS: loratadine 10mg tablet PO SCH (07:50)
[2019-05-29] MEDS: nitrofuran/nitrofuran macrocrysal 100 MG capsule PO SCH (07:50)
[2019-05-29] MEDS: heparin, porcine 5000 units/ml vial SQ SCH ×2 (07:51→20:23)
[2019-05-29 11:00] VITALS: BP 165/80
[2019-05-29 15:00] VITALS: BP 137/72
--- NOTE | 2019-05-29 15:43 | NUR ---
Case Management informed that the pt will need a Midline or PICC prior to transport to [facility]. PICC RN has been paged. Patient has a PIV and that is not acceptable to SNF. Will continue to monitor.
--- NOTE | 2019-05-29 18:10 | NUR ---
Problems reprioritized. Patient report given, questions answered & plan of care reviewed with Markos RN. Patient has no complaints.
--- NOTE | 2019-05-29 18:11 | NUR ---
Patient in room PCU 3010. I have received report from Bethany Lockett RN and had the opportunity to ask questions and assume patient care.
[2019-05-29 19:00] VITALS: BP 154/90
[2019-05-29] MEDS: atorvastatin 20mg tablet PO SCH (20:23)
[2019-05-29 23:00] VITALS: BP 156/81
[2019-05-30 02:00] VITALS: BP 138/68
[2019-05-30 04:23] LABS: BASOPHILS % (AUTO) 0.7 % (0-1); EOSINOPHILS # (AUTO) 0.7 X10'3 (0-0.9); EOSINOPHILS % (AUTO) 11.3 % (0-6); HEMATOCRIT 40.1 % (42.0-52.0); HEMOGLOBIN 13.1 g/dl (14.0-17.9); LYMPHOCYTES # (AUTO) 0.7 X10'3 (1.1-4.8); LYMPHOCYTES % (AUTO) 10.5 % (21-51); MEAN CORPUSCULAR HEMOGLOBIN 28.4 PG (27.0-31.0); MEAN CORPUSCULAR HGB CONC 32.7 g/dL (33.0-36.5); MEAN CORPUSCULAR VOLUME 86.8 FL (78-98); MEAN PLATELET VOLUME 8.9 FL (7.4-10.4); MONOCYTES # (AUTO) 0.6 X10'3 (0-0.9); MONOCYTES % (AUTO) 8.6 % (2-12); NEUTROPHILS # (AUTO) 4.5 X10'3 (1.8-7.7); NEUTROPHILS % (AUTO) 68.9 % (42-75); PLATELET COUNT 159 X10'3 (140-440); RED BLOOD COUNT 4.62 X10'6 (4.70-6.10); RED CELL DISTRIBUTION WIDTH 14.9 % (11.5-14.5); WHITE BLOOD COUNT 6.5 X10'3 (4.5-11.0)
[2019-05-30 04:34] LABS: ANION GAP 11 (8-16); BLOOD UREA NITROGEN 31 MG/DL (7-18); BUN/CREATININE RATIO 17.8 (5.4-32.0); CALCIUM 8.4 MG/DL (8.5-10.1); CHLORIDE 110 MMOL/L (99-107); CREATININE 1.74 MG/DL (0.60-1.10); GLUCOSE 96 MG/DL (70-104); POTASSIUM 4.2 MMOL/L (3.5-5.1); SODIUM 145 MMOL/L (135-145); TOTAL CARBON DIOXIDE 23.9 MMOL/L (24-32); eGFR 37 ML/MIN
[2019-05-30] MEDS: normal saline 1000ml 1,000 ML IV SCH (05:00)
[2019-05-30 06:00] VITALS: BP 208/97
--- NOTE | 2019-05-30 06:10 | NUR ---
Patient in room PCU 3010. I have received report from LUISA Burrows and had the opportunity to ask questions and assume patient care. Pt is sitting up in bed and looking out the window. He has no complaints at this time. Will continue to monitor patient.
[2019-05-30] MEDS: MEROPENEM 1GM/NS 50ML IVPB 50 ML IV SCH (08:26)
[2019-05-30] MEDS: furosemide 20MG tablet PO SCH (08:27)
[2019-05-30] MEDS: loratadine 10mg tablet PO SCH (08:27)
[2019-05-30] MEDS: isosorbide mononitrate 30mg tab.SR.24H PO SCH (08:27)
[2019-05-30] MEDS: aspirin 81mg tablet.DR PO SCH (08:27)
[2019-05-30] MEDS: levoTHYROXINE 25mcg tablet PO SCH (08:27)
[2019-05-30] MEDS: bisacodyl 10mg suppository rectal RC SCH (08:28)
[2019-05-30] MEDS: metoprolol tartrate 25mg tablet PO SCH (08:28)
[2019-05-30] MEDS: tamsulosin 0.4mg capsule PO SCH (08:28)
[2019-05-30] MEDS: heparin, porcine 5000 units/ml vial SQ SCH (08:29)
[2019-05-30] MEDS: docusate sod 100mg capsule PO SCH (08:29)
[2019-05-30] MEDS: lactobacillus rhamnosus 10,000 MMU CELLS/CAPSULE PO SCH (10:51)
[2019-05-30 11:00] VITALS: BP 144/75
--- NOTE | 2019-05-30 12:25 | NUR ---
Ming from [facility] is here to transport the patient to [place]. Report has been called and it has been verified that there is in fact an isolation room available for the patient. Patient has an extended PIV per [facility] preferences placed today by the PIC LUISA Cross in the NEIL. Addendum: 05/30/19 at 1336 by Bethany Molina RN All of the patients belongings have been sent with the patient. Patients Brother In Law has been informed of the transfer.
== END 2019-05-30 12:31 | DRG 871 ==
LOC: ER 10:41 → ED HOLD 12:52 → PCU 3S 19:44
PROVIDERS: ADMIT Family Medicine; ATTEND Family Medicine
DX: A41.9 Sepsis, unspecified organism (principal); G93.41 Metabolic encephalopathy; E87.2 Acidosis; N39.0 Urinary tract infection, site not specified; R65.20 Severe sepsis without septic shock; N18.9 Chronic kidney disease, unspecified; B96.5 Pseudomonas (aeruginosa) (mallei) (pseudomallei) as the cause of diseases classified elsewhere; E78.00 Pure hypercholesterolemia, unspecified; Z60.2 Problems related to living alone; R00.0 Tachycardia, unspecified; N40.1 Benign prostatic hyperplasia with lower urinary tract symptoms; R33.8 Other retention of urine; E78.5 Hyperlipidemia, unspecified; F03.90 Unspecified dementia, unspecified severity, without behavioral disturbance, psychotic disturbance, mood disturbance, and anxiety; I12.9 Hypertensive chronic kidney disease with stage 1 through stage 4 chronic kidney disease, or unspecified chronic kidney disease; I25.10 Atherosclerotic heart disease of native coronary artery without angina pectoris; K56.41 Fecal impaction; Z88.6 Allergy status to analgesic agent; Z79.82 Long term (current) use of aspirin; Z87.440 Personal history of urinary (tract) infections; Z88.1 Allergy status to other antibiotic agents
CPT/HCPCS: 36415; 70450; 71045; 74176; 76775; 76937; 80048; 80053; 80305; 80320; 81001; 82140; 83605; 84145; 84484; 85025; 85610; 85730; 87040; 87077; 87081; 87088; 87186; 93005; 96361; 96374; 96375; 99285; G0378; J0692; J1200; J1644; J2185; J2270; J3010; J3370; J7030; J7512

== ENCOUNTER 2019-07-09 22:25 | Emergency (ER) | payer MEDICARE ==
[~2019-07-09] VITALS: Ht 172.7 cm; Wt 86.0 kg
[~2019-07-09 22:25] MED LIST changes: +BISA10SU60 RC; -GABA-532 PO; -IBUP-1984 PO; +LACT1CAP65 PO; -LISI-600 PO; +MAGN400O6 PO; -MULT-933 PO; +PHEN-716 PO
[2019-07-09 22:26] VITALS: BP 126/73
[2019-07-09] MEDS ORDERED: normal saline 1000ML IV soln IVB ONE (22:45)
[2019-07-09 22:59] LABS: CLARITY,URINE CLEAR (Clear); GLUCOSE, URINE 100 mg/dl (Neg); LEUKOCYTE ESTERASE ,URINE TRACE (Neg); OCCULT BLOOD,URINE TRACE-INTACT (Neg)
[2019-07-09 23:02] LABS: COLOR,URINE ORANGE (Yellow); UA COLLECTION TYPE CLN CATCH MIDSTREAM
[2019-07-09 23:03] LABS: BASOPHILS % (AUTO) 0.7 % (0-1); EOSINOPHILS # (AUTO) 0.5 X10'3 (0-0.9); EOSINOPHILS % (AUTO) 7.1 % (0-6); HEMOGLOBIN 11.8 g/dl (14.0-17.9); LYMPHOCYTES % (AUTO) 15.2 % (21-51); MEAN CORPUSCULAR HEMOGLOBIN 28.3 PG (27.0-31.0); MEAN CORPUSCULAR HGB CONC 32.7 g/dL (33.0-36.5); MEAN CORPUSCULAR VOLUME 86.5 FL (78-98); MEAN PLATELET VOLUME 7.9 FL (7.4-10.4); MONOCYTES # (AUTO) 0.7 X10'3 (0-0.9); MONOCYTES % (AUTO) 10.5 % (2-12); NEUTROPHILS # (AUTO) 4.3 X10'3 (1.8-7.7); NEUTROPHILS % (AUTO) 66.5 % (42-75); PLATELET COUNT 182 X10'3 (140-440); RED BLOOD COUNT 4.16 X10'6 (4.70-6.10); RED CELL DISTRIBUTION WIDTH 18.1 % (11.5-14.5); WHITE BLOOD COUNT 6.5 X10'3 (4.5-11.0)
[2019-07-09 23:05] LABS: BACTERIA,URINE FEW /HPF (Neg); RBC,URINE NONE SEEN /HPF (0-2)
[2019-07-09 23:06] LABS: HYALINE CASTS 0-3 /LPF (NEGATIVE); SQUAMOUS EPITHELIAL CELL,UR FEW /LPF (FEW)
[2019-07-09 23:15] LABS: ALANINE AMINOTRANSFERASE 18 U/L (12-78); ALBUMIN 3.3 G/DL (3.4-5.0); ALKALINE PHOSPHATASE 154 IU/L (46-116); ANION GAP 10 (8-16); ASPARTATE AMINO TRANSFERASE 16 U/L (10-37); BLOOD UREA NITROGEN 42 MG/DL (7-18); BUN/CREATININE RATIO 20.1 (5.4-32.0); CALCIUM 8.6 MG/DL (8.5-10.1); CHLORIDE 105 MMOL/L (99-107); CREATININE 2.09 MG/DL (0.60-1.10); GLUCOSE 145 MG/DL (70-104); LIPASE 179 U/L (73-393); POTASSIUM 4.4 MMOL/L (3.5-5.1); SODIUM 141 MMOL/L (135-145); TOTAL CARBON DIOXIDE 25.7 MMOL/L (24-32); TOTAL PROTEIN 6.7 G/DL (6.4-8.2); eGFR 30 ML/MIN
--- NOTE | 2019-07-10 00:44 | NUR ---
REPORT GIVEN TO DORCAS MORAN AT [facility]
--- NOTE | 2019-07-13 11:37 | NUR ---
CALLED [facility] AND THEY HAD STARTED HIM ON IV ANTIBIOTICS THIS AM AT 0600. CEFEPIME IV 2 GRAMS X 7 DAYS
== END 2019-07-10 01:49 | disposition home or self-care (01) ==
LOC: ER 22:26
DX: F03.90 Unspecified dementia, unspecified severity, without behavioral disturbance, psychotic disturbance, mood disturbance, and anxiety (principal); R10.30 Lower abdominal pain, unspecified; R41.0 Disorientation, unspecified; E78.00 Pure hypercholesterolemia, unspecified; I10 Essential (primary) hypertension; Z60.2 Problems related to living alone; Z88.8 Allergy status to other drugs, medicaments and biological substances; Z79.82 Long term (current) use of aspirin; Z79.899 Other long term (current) drug therapy
CPT/HCPCS: 36415; 74176; 80053; 81001; 83690; 85025; 87077; 87088; 87186; 99284; J7030; 96361; J7040

== ENCOUNTER 2019-07-16 16:10 | Emergency (ER) | payer MEDICARE ==
[~2019-07-16] VITALS: Ht 172.7 cm; Wt 72.0 kg
[2019-07-16 16:17] VITALS: BP 163/80
== END 2019-07-16 18:00 | disposition home or self-care (01) ==
LOC: ER 16:11
DX: M54.2 Cervicalgia (principal); F03.90 Unspecified dementia, unspecified severity, without behavioral disturbance, psychotic disturbance, mood disturbance, and anxiety; E78.00 Pure hypercholesterolemia, unspecified; I10 Essential (primary) hypertension; Z88.4 Allergy status to anesthetic agent; Z79.899 Other long term (current) drug therapy; Z79.82 Long term (current) use of aspirin; Z60.2 Problems related to living alone; X58.XXXA Exposure to other specified factors, initial encounter; Y93.89 Activity, other specified; Y92.89 Other specified places as the place of occurrence of the external cause; Y99.8 Other external cause status
CPT/HCPCS: 72040; 99283

== ENCOUNTER 2019-10-16 03:25 | Emergency (ER) | payer MEDICARE ==
[~2019-10-16] VITALS: Ht 182.9 cm; Wt 100.0 kg
[~2019-10-16 03:25] MED LIST changes: -ACET-75 PO; -ASPI-611 PO; -ATOR20TA PO; -BISA10SU60 RC; +DIPH25CA52 PO; -DOCU-272 PO; -FURO20TA4 PO; +HYDR-4383 PO; -LACT1CAP65 PO; -LEVO25TA7 PO; +LEVO50TA8 PO; +LORA-660 PO; -LORA10TA7 PO; -MAGN400O6 PO; +MYL80T PO; +OXYB5TAB16 PO; -PHEN-716 PO
[2019-10-16 04:00] LABS: BASOPHILS % (AUTO) 0.6 % (0-1); EOSINOPHILS # (AUTO) 0.2 X10'3 (0-0.9); HEMATOCRIT 40.8 % (42.0-52.0); HEMOGLOBIN 13.5 g/dl (14.0-17.9); LYMPHOCYTES # (AUTO) 0.8 X10'3 (1.1-4.8); LYMPHOCYTES % (AUTO) 16.8 % (21-51); MEAN CORPUSCULAR HEMOGLOBIN 27.8 PG (27.0-31.0); MEAN CORPUSCULAR HGB CONC 33.1 g/dL (33.0-36.5); MEAN PLATELET VOLUME 7.9 FL (7.4-10.4); MONOCYTES # (AUTO) 0.3 X10'3 (0-0.9); MONOCYTES % (AUTO) 5.7 % (2-12); NEUTROPHILS # (AUTO) 3.5 X10'3 (1.8-7.7); NEUTROPHILS % (AUTO) 71.9 % (42-75); PLATELET COUNT 208 X10'3 (140-440); RED BLOOD COUNT 4.85 X10'6 (4.70-6.10); RED CELL DISTRIBUTION WIDTH 15.5 % (11.5-14.5); WHITE BLOOD COUNT 4.9 X10'3 (4.5-11.0)
[2019-10-16 04:01] LABS: CLARITY,URINE SLIGHTLY CLOUDY (Clear); COLOR,URINE YELLOW (Yellow); GLUCOSE, URINE NEGATIVE (Neg); KETONES,URINE NEGATIVE (Neg); LEUKOCYTE ESTERASE ,URINE TRACE (Neg); NITRITES, URINE NEGATIVE (Neg); OCCULT BLOOD,URINE SMALL (Neg); PH,URINE 6.5 (4.8-8.0); PROTEIN,URINE 100 mg/dl (Neg); UROBILINOGEN,URINE 0.2 E.U/dL (0.2-1.0)
[2019-10-16 04:04] LABS: PARTIAL THROMBOPLASTIN TIME 30 SECONDS (22-32)
[2019-10-16 04:09] LABS: UA COLLECTION TYPE STRAIGHT CATH
[2019-10-16 04:11] LABS: BACTERIA,URINE NONE SEEN /HPF (Neg); SQUAMOUS EPITHELIAL CELL,UR FEW /LPF (FEW); WBC,URINE 20-30 /HPF (0-4)
[2019-10-16 04:12] LABS: FINE GRANULAR CAST 0-3 /LPF (NEGATIVE); YEAST MODERATE /HPF (NEGATIVE)
[2019-10-16] MEDS ORDERED: ERTA1VIA4 (04:13)
[2019-10-16] MEDS ORDERED: HEPA100D36 (04:14)
[2019-10-16] MEDS ORDERED: FURO-150 PO (04:15)
[2019-10-16] MEDS ORDERED: TYL650S RC (04:15)
[2019-10-16] MEDS ORDERED: CefTRIAXone/D5W-Rocephin 1gm 50 ML IV ONE (04:15)
[2019-10-16 04:24] LABS: ALANINE AMINOTRANSFERASE 9 U/L (12-78); ALBUMIN 3.3 G/DL (3.4-5.0); ALBUMIN/GLOBULIN RATIO 0.8 (1.1-1.5); ALKALINE PHOSPHATASE 178 IU/L (46-116); ANION GAP 11 (8-16); ASPARTATE AMINO TRANSFERASE 17 U/L (10-37); BILIRUBIN,TOTAL 0.8 MG/DL (0.1-1.0); BLOOD UREA NITROGEN 21 MG/DL (7-18); CALCIUM 8.6 MG/DL (8.5-10.1); CHLORIDE 105 MMOL/L (99-107); CREATININE 1.91 MG/DL (0.60-1.10); GLUCOSE 119 MG/DL (70-104); POTASSIUM 4.6 MMOL/L (3.5-5.1); SODIUM 139 MMOL/L (135-145); TOTAL CARBON DIOXIDE 23.3 MMOL/L (24-32); TOTAL PROTEIN 7.2 G/DL (6.4-8.2); eGFR 34 ML/MIN
[2019-10-16] MEDS ORDERED: CEFE1FRO (04:25)
[2019-10-16] MEDS ORDERED: LORA10CA PO (04:27)
[2019-10-16 04:59] VITALS: BP 175/83
--- NOTE | 2019-10-16 11:28 | NUR ---
[facility] CALLED REGARDING PT'S EARLER VISIT TODAY. INFORMED THAT PT'S CHEST XRAY SHOWED HAXY BILATERAL LOBE OPACITY AND SMALL BILATERAL PLEURAL EFFUSIONS AND REQUIRED ABX; LEVAQUIN 750 MG PO DAILY x7 DAYS. PT ALREADY TAKING CEPHAPINE 1 GM Q8HRS x7 DAYS, DR ACUÑA NOTIFIED AND CANCELED LEVAQUIN ORDER. CHEST XRAY REPORT FAXED TO [facility] REQUESTED BY PIE FILLING MIXER.
== END 2019-10-16 05:55 ==
LOC: ER 03:25
DX: N39.0 Urinary tract infection, site not specified (principal); F03.90 Unspecified dementia, unspecified severity, without behavioral disturbance, psychotic disturbance, mood disturbance, and anxiety; E78.00 Pure hypercholesterolemia, unspecified; R56.9 Unspecified convulsions; I10 Essential (primary) hypertension; Z88.4 Allergy status to anesthetic agent; Z79.899 Other long term (current) drug therapy
CPT/HCPCS: 36415; 70450; 71045; 80053; 81001; 85025; 85610; 85730; 87088; 93005; 96365; 99285; J0696

== ENCOUNTER 2019-10-22 02:15 | Emergency (ER) | payer MEDICARE ==
[~2019-10-22] VITALS: Ht 172.7 cm; Wt 75.0 kg
[~2019-10-22 02:15] MED LIST changes: +CEFE1FRO; +ERTA1VIA4; +FURO-150 PO; +HEPA100D36; +LORA10CA PO; +TYL650S RC
[2019-10-22 02:22] VITALS: BP 159/68
== END 2019-10-22 04:33 | disposition home or self-care (01) ==
LOC: ER 02:16
DX: T82.898A Other specified complication of vascular prosthetic devices, implants and grafts, initial encounter (principal); F03.90 Unspecified dementia, unspecified severity, without behavioral disturbance, psychotic disturbance, mood disturbance, and anxiety; E78.00 Pure hypercholesterolemia, unspecified; I10 Essential (primary) hypertension; Z60.2 Problems related to living alone; Z88.4 Allergy status to anesthetic agent; Z79.899 Other long term (current) drug therapy; Y83.9 Surgical procedure, unspecified as the cause of abnormal reaction of the patient, or of later complication, without mention of misadventure at the time of the procedure; Y92.89 Other specified places as the place of occurrence of the external cause
CPT/HCPCS: 71045; 99283